=== PATIENT | female | born 1950 | race Caucasian/White ===

== ENCOUNTER → 2016-08-25 | Outpatient (CLI) | payer OTHER ==
[~2016-08-25] VITALS: Ht 152.4 cm; Wt 60.5 kg
[~2016-08-25] MED LIST: AMBEREN; ASPIRIN325; CALTRATE-600 W1 EACH PO; COLACE100 MG PO; DOLOPHINE HCL10 MG; EEMT DS 1.25-21 EACH PO; ESTRACE2 MG PO; EXCEDRIN CAPLE1 EACH PO; LASIX 20 MG TAB20 MG PO; LEVOTHYROXIN0.075 MG PO; METHADONE HCL 110 M1 PO; METHADOSE10 MG PO; MULTIVITAMINS; PREVACID 30MG C30 M1 PO; SYNTHROID50 MCG PO; TOPROL XL100 MG PO; XANAX 0.5 MG0.5 M1 PO
--- NOTE | ~2016-08-25 | HPC ---
[facility] [address] [place] [address] PAIN MANAGEMENT CONSULTATION Name: MATEUS CHRISTINE Room #: REG Aracely Toscano#: [id number] Admission: 08/25/16 Attend Phys: Jose Carlos Blair MD Discharge: Date of : 48 Report #: [id number] THIS REPORT FOR: //name// CC: Luan Blair DATE OF SERVICE: 08/25/2016 Followup visit for trigeminal neuralgia. The patient is in the pain clinic today for a 20-minute consultation regarding her long time use of methadone for trigeminal neuralgia. Her peak dose was 90 mg. We had a long discussion today about the CDC guidelines, morphine milligram equivalency recommendations and chronic use. I told her that just in the last week we had been receiving some letters from insurance companies who were suggesting that they would no longer pay for medications above 90 morphine milligram equivalencies. We foresee this coming. Likely, the insurance company will not interfere with the doctor-patient relationship, only to the extent that they will not pay for certain medications outside of the guidelines. I have no way of predicting what the future will bring. At any rate, I will first try and taper to the lowest most effective dose. We will continue when she is open to that. We will place her on her methadone dose down again by 10 mg per day. She originally was at 90 and she tolerated it. I dropped to hopeful that she will also continue to do well dropping her dose to 70 mg a day. For years, she has told me that her pain score is zero. When she comes in the clinic today for the first time, she notes that her pain is a 2-4, right side of her face, although she tells me she believes it may be the cold wind and the temperature . She has no other significant withdrawal symptoms with reduction in the methadone over the last 3-month interval. There have been no other significant changes in her health. She is doing well. She follows with Dr. King Fisher for the rest of her health issues. 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 PHYSICAL EXAMINATION: VITAL SIGNS: Blood pressure 136/60, heart rate is 48. BMI is 26.1. NEUROLOGIC: She moves easily from sitting to standing position. She ambulates with mild antalgic features, owing to some arthritis also in her hip. She has tenderness there. Cervical range of motion is normal, with mild crepitus. She complains of slight pain with neck extension. There is no allodynia to the right side of the face, where she has typically suffered from her atypical facial pain/trigeminal neuralgia. [address] [address] PAIN MANAGEMENT CONSULTATION Name: MATEUS CHRISTINE Ezekiel Room #: REG CL Dorcas#: [id number] Admission: 08/25/16 Attend Phys: Jose Carlos Blair MD Discharge: Date of : 48 Report #: [id number] IMPRESSION: 1. Chronic facial pain, atypical neuralgia/trigeminal neuralgia. 2. Management of high-risk medication. SUMMARY: Medications were renewed under terms of our opioid agreement, with strict instructions in safeguarding. She was given methadone 210 tablets per month. She will be dosing 3 in the morning, 2 in the afternoon and 2 in the evening for chronic pain. We will see how she does with this reduction in the 3-month interval. <ELECTRONICALLY SIGNED> By: Jose Carlos Blair MD 08/26/16 1329 [id number] Jose Carlos Blair MD /nt
[2016-08-25 08:17] VITALS: BP 136/60
== END | disposition home or self-care (01) ==
LOC: PAIN 07:01
DX: M79.1 Myalgia (principal); G50.0 Trigeminal neuralgia; G89.29 Other chronic pain; Z87.891 Personal history of nicotine dependence

== ENCOUNTER → 2016-11-21 | Outpatient (CLI) | payer OTHER ==
[~2016-11-21] VITALS: Ht 152.4 cm; Wt 59.8 kg
--- NOTE | ~2016-11-21 | HPC ---
[facility] [place] [place] [address] PAIN MANAGEMENT CONSULTATION Name: MATEUS CHRISTINE Room #: REG [facility] Yudy.#: [id number] Admission: 11/21/16 Attend Phys: Jose Carlos Blair MD Discharge: Date of : 48 Report #: [id number] THIS REPORT FOR: //name// CC: Luan Blair DATE OF SERVICE: 11/21/2016 Followup visit for trigeminal neuralgia. The patient returns to pain clinic today in followup 3 months ago. At that time, we began tapering further methadone. She had been on 90 mg tapered down to 80, then 70. Today, we will make further reduction down to 60 mg. We have been doing this at 3-month intervals and she has done well without signs of withdrawal. We have also been able to keep under control her migraine and trigeminal headaches, so all is going well to this point. She is noticing, however, that she is having a bit more of a fasciculation in her right periorbital region. I have not seen this before and she showed me today how this occurs. She says that the cold wind is bothering her today. Typically, she scores her pain as 0. Today, it is 2-4. We will watch and make sure that we can continue to taper her medication further without losing control of her trigeminal neuralgia. She reports that pain has been so very well controlled that she has been able to function almost normally with the use of methadone. Her opioid risk tool is 0. Likelihood of addiction is low given our assessment. PHYSICAL EXAMINATION: She is pleasant, alert and oriented, without signs of overmedication depression or anxiety. Small fasciculation is noted along the right periorbital region. There is minor discomfort with light touch allodynia noted along the right side of the face. Blood pressure is 112/67, heart rate 46, respirations 16. IMPRESSION: 1. Trigeminal neuralgia. 2. Management of high risk medication methadone. Followup visit is planned in 3 months. By: [id number] Jose Carlos lBair MD /nt
[2016-11-21 09:41] VITALS: BP 112/67
== END ==
LOC: PAIN 06:40
DX: G50.0 Trigeminal neuralgia (principal); G43.909 Migraine, unspecified, not intractable, without status migrainosus; I10 Essential (primary) hypertension; Z87.891 Personal history of nicotine dependence

== ENCOUNTER → 2017-02-06 | Outpatient (CLI) | payer OTHER ==
[~2017-02-06] VITALS: Ht 154.9 cm; Wt 61.7 kg
--- NOTE | ~2017-02-06 | HPC ---
[facility] [place] [address] PAIN MANAGEMENT CONSULTATION Name: MATEUS CHRISTINE Room #: REG [facility] Yudy.#: [id number] Admission: 02/06/17 Attend Phys: Jose Carlos Blair MD Discharge: Date of : 48 Report #: [id number] THIS REPORT FOR: //name// CC: Luan Blair DATE OF SERVICE: 02/06/2017 DATE OF REGISTRATION: 02/06/2017 Followup visit for trigeminal neuralgia. The patient returns to pain clinic today and is doing okay. I have reduced her methadone from 100 mg a day down to 60 mg a day. She says that she now has pain of about a 4/10. She previously used to report no pain whatsoever. She has no significant side effects from her medication. I think she is disappointed. We have dropped her dose, but we have been trying to come to the lowest effective dose. I had planned that we might try and reduce her further if she was stable, but today I have elected to keep her at 60 mg a day. She still has pain on the right side of her face, which is sharp, pounding pressure sensation, particularly worsened by cold and she also can be aggravated by bright light. No other health issues have gone on since her last visit. She has seen no other physicians, no hospitalizations or ER visits. PHYSICAL EXAMINATION: Blood pressure 118/56, heart rate 44. BMI is 25. She is pleasant, alert and oriented without any signs of depression, anxiety or overmedication. IMPRESSION: 1. Trigeminal neuralgia. 2. Management of high risk medication methadone. I renewed her methadone at 60 mg per day under terms of our opioid agreement. We discussed the importance of safeguarding medication. She understands the opioid crisis well and she also understands it by current calculations she is outside of the CDC guideline. I will make the judgment that we should continue that today, but we will continue to monitor closely. She will require urine drug screens periodically. Followup visit is planned in 3 months. By: [id number] Jose Carlos Blair MD /nt
[2017-02-06 14:24] VITALS: BP 118/56
== END | disposition home or self-care (01) ==
LOC: PAIN 06:55
DX: G50.0 Trigeminal neuralgia (principal); G89.29 Other chronic pain; F11.20 Opioid dependence, uncomplicated; Z87.891 Personal history of nicotine dependence; Z79.82 Long term (current) use of aspirin; Z88.8 Allergy status to other drugs, medicaments and biological substances

== ENCOUNTER → 2017-05-01 | Outpatient (CLI) | payer OTHER ==
[~2017-05-01] VITALS: Ht 152.4 cm; Wt 61.3 kg
--- NOTE | ~2017-05-01 | HPC ---
[facility] [address] [address] PAIN MANAGEMENT CONSULTATION Name: MATEUS CHRISTINE Room #: REG [facility] Dorcas#: [id number] Admission: 05/01/17 Attend Phys: Jose Carlos Blair MD Discharge: Date of : 48 Report #: [id number] THIS REPORT FOR: //name// CC: Luan Blair DATE OF SERVICE: 05/01/2017 DATE OF REGISTRATION: 05/01/2017 Followup visit for trigeminal neuralgia. 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 This is extremely difficult condition, has been well managed with her methadone. She has seen at 3-month intervals. We have reduced her dose from 100 mg a day down to 60. It is taking her a little bit, but she has adjusted to this new dose and although her pain scores used to be 0 and are now 3, she says that she has adjusted and does not want to go up on her medication at this time. We had a long talk today about the opioid crisis in the [place], the difference between an addiction and dependence. She is very grateful for the medication that has allowed her to get her life back. She was miserable when we first saw her. She has no other medical issues currently ongoing other than some new onset of neck pain with radiation into the left shoulder. She has had 2 previous anterior cervical diskectomy and fusions. On physical examination, she is pleasant, alert and oriented, without signs of depression, anxiety or overmedication. Vital signs are blood pressure 116/64, heart rate 46, respirations 16, BMI is 26.4. She walks with normal gait without an antalgic features. Examination of the face reveals no allodynia. Examination of the neck reveals some mild pain located to the left of the midline roughly at C6-C7 with radiation to the suprascapular region. There is no radiation beyond at this time. 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 Sensation is intact. Deep tendon reflexes are 1+ biceps, triceps and brachioradialis. I checked reflexes in the lower extremities for evidence of hyperreflexia and there is none. IMPRESSION: 1. 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 2. Management of high risk medication of methadone. This medication has been very effective in helping her with her neuropathic pain and she is taking according to contract. She will follow our opioid agreement carefully and [address] [address] PAIN MANAGEMENT CONSULTATION Name: MATEUS CHRISTINE Room #: REG [facility] [id number] Admission: 05/01/17 Attend Phys: Jose Carlos Blair MD Discharge: Date of : 48 Report #: [id number] safeguard all medications. 3. New onset of cervicalgia with radiation. She has a history of anterior cervical diskectomy and fusion performed in the right. For now, we will watch this symptom carefully. If they worsen, she will be a candidate for cervical epidural injection. DIAGNOSTIC TESTING: Would include possible MRI. Medications were renewed and I will see her back in 3 months. By: [id number] Jose Carlos Blair MD /nt
[2017-05-01 10:08] VITALS: BP 116/64
== END | disposition home or self-care (01) ==
LOC: PAIN 07:21
DX: G50.0 Trigeminal neuralgia (principal); Z87.891 Personal history of nicotine dependence

== ENCOUNTER → 2017-07-24 | Outpatient (CLI) | payer OTHER ==
[~2017-07-24] VITALS: Ht 152.4 cm; Wt 59.4 kg
[~2017-07-24] MED LIST changes: +PRILOSEC 20 MG20 MG PO
--- NOTE | ~2017-07-24 | HPC ---
[facility] [place] [address] PAIN MANAGEMENT CONSULTATION Name: MATEUS CHRISTINE Room #: REG Aracely Dorcas#: [id number] Admission: 07/24/17 Attend Phys: Jose Carlos Blair MD Discharge: Date of : 48 Report #: [id number] THIS REPORT FOR: //name// CC: Luan Blair DATE OF SERVICE: 07/24/2017 DATE OF REGISTRATION: 07/24/2017 Follow up visit for management of trigeminal neuralgia. The patient presents back to the pain clinic today with the pain score of 4/10. Her trigeminal neuralgia has been acting up a bit since we tapered her down off of her narcotic a bit and she has also been under a lot of stress as her was hospitalized recently. She has anesthesia dolorosa which is quiet down substantially with the methadone suppression over the number of years. She has been on an opioid agreement, which we reviewed today. We talked again about the CDC guidelines. We talked about her current use. If we use methadone calculation at 4 mg/mL, her current daily dose is 60 mg of methadone per day is equal to 240 MME. As I have said often, my clinical impression is the 4:1 ratio does not seem quite right for patient's long established on methadone. The longer they are on it, the less it seems to affect them in any sort of negative way. She has no cognitive issues whatsoever. Denies any bowel or bladder dysfunction. I had a chance to talk today with her daughter. Her daughter is living locally and is the first time I have met her. Daughter has 2 small children, ages 6 and 8. She does not believe that the medications are adversely affecting her parents. PHYSICAL EXAMINATION: GENERAL: The patient looks good, well groomed, well dressed. VITAL SIGNS: Blood pressure 137/62, heart rate is 50, respirations 16, BMI is 25.6. MUSCULOSKELETAL: She has very minimal allodynia on the right side of her face. She does complain of some radicular pain into the neck, shoulder and down into the left arm extending into the C6-C7 distribution with mild numbness and tingling there. IMPRESSION: 1. Chronic trigeminal neuralgia and anesthesia dolorosa. 2. Management of methadone with good control of current pain, currently on opioid agreement. [address] [address] PAIN MANAGEMENT CONSULTATION Name: MATEUS CHRISTINE Ezekiel Room #: REG CHASE Toscano#: [id number] Admission: 07/24/17 Attend Phys: Jose Carlos Blair MD Discharge: Date of : 48 Report #: [id number] 3. Cervicalgia with radiculopathy on the left. PLAN: Medications renewed. Plan to follow up in 3 months. She may yet be a candidate for cervical epidural injection if her radicular symptoms worsen. By: [id number] Jose Carlos Blair MD /ishan
[2017-07-24 09:21] VITALS: BP 137/62
== END ==
LOC: PAIN 07:18
DX: M54.12 Radiculopathy, cervical region (principal); G50.0 Trigeminal neuralgia; F11.90 Opioid use, unspecified, uncomplicated

== ENCOUNTER → 2017-10-12 | Outpatient (CLI) | payer OTHER ==
[~2017-10-12] VITALS: Ht 152.4 cm; Wt 59.9 kg
--- NOTE | ~2017-10-12 | HPC ---
[facility] [address] [place] [address] PAIN MANAGEMENT CONSULTATION Name: MATEUS CHRISTINE Room #: REG CHASE Dorcas#: [id number] Admission: 10/12/17 Attend Phys: Jose Carlos Blair MD Discharge: Date of : 48 Report #: [id number] THIS REPORT FOR: //name// CC: Luan Blair DATE OF SERVICE: 10/12/2017 Followup visit for trigeminal neuralgia. The patient returns to pain clinic today for renewal of her methadone. We had a lengthy discussion today about methadone and the treatment of neuralgias. As I have noted before, she is one of many patients perhaps dozens the patients in our practice who responded very favorably to methadone for the treatment of neuropathic pain. This is no coincidence. Methadone clearly and clinical practice such as ours have shown benefits for neuropathic pain. It has been particularly useful for facial neuralgias, phantom limb pain and other unusual conditions. It is very well tolerated with a few side effects. She notes no significant cognitive side effects. Bowel and bladder are well controlled. Her current dose is 60 mg a day, which is on the upper edge of what I typically treat patients with. She was at one time on 100 mg per day. We have been tapering her slowly and she is agreeable to try and taper to the lowest effective dose and we are going to go down by 10 mg of methadone per day to 50. Using current calculations, this is still rather high in the CDC guideline. With 4 mg of morphine as an equivalents for 1 mg of methadone, the calculation is 200 MME. We will continue to try and taper it. My clinical impression is that this number is a bit too high. PQRS review shows that she has some osteoarthritis, mostly spondylosis of the neck. Some other degenerative conditions are noted as well in larger joints, but nothing that is under treatment. She stays fit, her BMI is 25.8. She does not smoke nor drink alcohol. Her vital signs are stable with a blood pressure 134/78, heart rate is 53, O2 sats 100. Pain intensity today with medication is 0-3. This allows for a functional assessment tool score that is very low 5/70 suggesting that her pain interferes very little with her day to day activities under current treatment. Risks assessment tool also shows that she is at low risk for addiction. She is on an opioid agreement, which was reviewed and she re-signed it today after reading it once again. She initially signed her agreement at this initiation of therapy in our clinic in 2007, so it has been about 10 years. It is reasonable for her to look at it once again. She understands the importance of safeguarding medications and we have had multiple talks about the opioid crisis. 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 [address] [address] PAIN MANAGEMENT CONSULTATION Name: MATEUS CHRISTINE Ezekiel Room #: REG CHASE Toscano#: [id number] Admission: 10/12/17 Attend Phys: Jose Carlos Blair MD Discharge: Date of : 48 Report #: [id number] IMPRESSION: 1. Chronic trigeminal neuralgia and anesthesia dolorosa, well managed with methadone. 2. Cervicalgia with radiculopathy, which is quiet at this time. PLAN: Follow up in the pain clinic in 3 months for medication. Dated prescriptions were released today. <ELECTRONICALLY SIGNED> By: Jose Carlos Blair MD 10/18/17 1640 [id number] [id number] Jose Carlos Blair MD /nt
[2017-10-12 13:03] VITALS: BP 134/78
== END ==
LOC: PAIN 07:08
DX: G50.0 Trigeminal neuralgia (principal)

== ENCOUNTER → 2018-03-19 | Outpatient (CLI) | payer OTHER ==
[~2018-03-19] VITALS: Ht 154.9 cm; Wt 62.6 kg
--- NOTE | ~2018-03-19 | HPC ---
[facility] [place] [address] PAIN MANAGEMENT CONSULTATION Name: MATEUS CHRISTINE Room #: REG [facility] Dorcas#: [id number] Admission: 03/19/18 Attend Phys: Jose Carlos Blair MD Discharge: Date of : 48 Report #: [id number] THIS REPORT FOR: //name// CC: Luan Blair DATE OF SERVICE: 03/19/2018 The patient returns to pain clinic today for followup. She receives methadone for facial pain and trigeminal neuralgia. She has done well at a dose of 16 mg daily. I upset her today. It was unintended. I went into the [place] prescription drug monitoring program site and it appeared as though she had received medication from other physicians. She vehemently denied this and when I went back on the site I could no longer identify prescriptions. I did write down the prescriptions and who they had been prescribed by and will pursue this further. It seems quite unlikely given her denial that the information was correct, but we will do our footwork. After upsetting her by letting her know that I had found this perhaps spurious information she was unsettled through the rest of the visit. She reported that the medication was critical to her. It provided dramatic and improvement in her pain and allowed her to be functional and able to do things that she was unable to do until she was able to obtain a reasonable dose of methadone. She denies side effects of any sort and safeguards her medication carefully including the appropriate use of prescriptions as provided by myself. She scores her pain with medications a /. She has no further allodynia or sensations from light touch or wind as she had when we lowered her dose at one time. PHYSICAL EXAMINATION: Other than her unhappiness at being told that she had been using medication, she appears to be stable and fine, pleasant, alert and oriented, without signs of overmedication. Blood pressure 130/63, heart rate 47, respirations 14, BMI 26.1. She has no allodynia whatsoever of the face today. IMPRESSION: 1. Trigeminal neuralgia with anesthesia dolorosa. 2. Management of high risk medication methadone. [facility] [address] [place] [address] PAIN MANAGEMENT CONSULTATION Name: MATEUS CHRISTINE Ezekiel Room #: REG [facility].#: [id number] Admission: 03/19/18 Attend Phys: Jose Carlos Blair MD Discharge: Date of : 48 Report #: [id number] RECOMMENDATIONS: We will pursue the issue of the spurious drug reporting and I will discuss further with Dr. Fisher if he has any questions. By: [id number] Jose Carlos Blair MD /nt
[2018-03-19 14:29] VITALS: BP 130/63
== END ==
LOC: PAIN 06:27
DX: G50.0 Trigeminal neuralgia (principal); Z79.899 Other long term (current) drug therapy

== ENCOUNTER → 2018-06-14 | Outpatient (CLI) | payer OTHER ==
[~2018-06-14] VITALS: Ht 154.9 cm; Wt 61.5 kg
--- NOTE | ~2018-06-14 | HPC ---
[facility] [address] [place] [address] PAIN MANAGEMENT CONSULTATION Name: MALLORY CHRISTINE Room #: REG [facility] Dorcas#: [id number] Admission: 06/14/18 Attend Phys: Aubrie Sheikh Discharge: Date of : 48 Report #: [id number] THIS REPORT FOR: //name// CC: Aubrie Fisher DATE OF SERVICE: 06/14/2018 CHIEF COMPLAINT: The patient returns today for followup medications for her facial pain and trigeminal neuralgia. HISTORY OF PRESENT ILLNESS: The patient returns today for followup for her medication management. Normally seen by Dr. Jose Carlos Blair, seen by myself today for her refill of her medication of methadone, which she takes 10 mg 2 tablets 3 times a day for her trigeminal neuralgia and some lower back pain. States that the medication is very helpful in easing her sharp, pounding, electrical pressure pain that she has and rates it 2/10 on a scale of 1-10 today. She does tell me that she was very upset at last visit with Dr. Blair regarding our practice of checking the state reporting PDMPs and found that she had no opioids and was not filling those. I did tell her that we did go in using just her name Yuki which she does not use here in our office, she uses Mallory and we did find all of her medications to be appropriate and only filling by Dr. Jose Carlos Blair with no apparent deviations. I did apologize to her and told her we should have called her, but Dr. Blair did speak to her about this and the patient understands that. The patient does tell me that she does have some constipation, but takes apples, oranges and cranberries in combination in type smoothie that is very effective in controlling her constipation issues. She denies daytime sleepiness and again states the medication is very helpful. She has tried to wean down some, but found that her pain control has been ineffective at a lower dose than what she currently is at. I talked to her about the MME guidelines per the CDC which the patient was aware of. Also discussed changes in our practice based on 0-50, 50-90 and over 90 and therefore we will be seeing her on an every 2-month basis based on where her MME falls with her methadone conversion. The patient was agreeable with this. Did tell me that it is sometimes costly to see us, but she understands the need to closely monitor everyone's narcotic uses. ALLERGY: FLAGYL. MEDICATIONS: The patient's list of medication is methadone 10 mg 2 tablets 3 times a day, omeprazole, Lasix, Excedrin caplets, Synthroid, multivitamin, calcium, Estrace, Toprol XL. RS: [address] [address] PAIN MANAGEMENT CONSULTATION Name: MALLORY CHRISTINE Ezekiel Room #: REG [facility]#: [id number] Admission: 06/14/18 Attend Phys: Aubrie Sheikh Discharge: Date of : 48 Report #: [id number] 1. History of osteoarthritis in her neck. Denies rheumatoid arthritis. 2. Height 5 feet 1 inch, weight today 135.6, BMI is 25.6. 3. Blood pressure 129/64, pulse is 44, respirations 16, oxygen sat is 96. 4. Pain intensity today is 2/10. 5. Fall risk: Denies any dizziness. Does not need help walking or standing and has not fallen in the last 3 months. 6. Denies blood thinners. 7. Does have a history of hypertension. 8. She has opioid therapy greater than 6 weeks and therefore opioid sign contract is on the chart. 9. Risk assessment tool is low and her functional assessment is . 10. The patient denies recreational drug use, is a former smoker and not using at this time and does not use alcohol. We did check her [place] PDMP and found that it was appropriate with only Dr. Blair filling her medications with no aberrant behavior. PHYSICAL EXAMINATION: GENERAL: The patient is a very pleasant 67-year-old female, alert, oriented, and appears her stated age. HEENT: Normocephalic, atraumatic. Extraocular muscles are intact. Mucous membranes are moist. No allodynia whatsoever on her face, does have tenderness to her face at times. No facial weakness is noted. MUSCULOSKELETAL: The patient able to ambulate without difficulty, raise from standing to sitting without difficulty. Able also to move her shoulders, neck and arm without difficulty. IMPRESSION: 1. Trigeminal neuralgia with anesthesia dolorosa. 2. Low back pain with no radiculopathy. 3. Management of high risk medication methadone. We reviewed the fact that opiate medications are being used to provide analgesia adequate to support activities of daily living, not attempting to achieve a specific pain score on the 0-10 Visual Analog Scale. The current opiate medications are providing sufficient analgesia to allow the patient to participate in activities of daily living. The patient is not exhibiting any aberrant behavior suggestive of drug diversion. The patient is not having any adverse reactions to medications. The patient is not suffering from daytime somnolence or mental acuity changes. The patient is managing opiate-induced constipation with appropriate zldf-wog-xsnffxy agents and dietary considerations. The patient was counseled on concern for caution with operating a motor vehicle while using opiate medications. A physical exam was performed and the patient's functional status was evaluated. All patients with back pain were advised against the bed rest greater than 4 [facility] [address] [place] [address] PAIN MANAGEMENT CONSULTATION Name: MALLORY CHRISTINE Room #: REG [facility].#: [id number] Admission: 06/14/18 Attend Phys: Aubrie Sheikh Discharge: Date of : 48 Report #: [id number] days and were advised to return to normal activities. Pain score assessment was noted and the treatment plan was reviewed with the patient. All current medications, both prescribed and OTC were reviewed and reconciled on the electronic medical record. Tobacco screening was accomplished and smoking cessation was advised when indicated. BMI was noted and diet/exercise modification was recommended for all patients following outside normal parameters. I reviewed with the patient today their responsibilities to safeguard prescription medications, reviewed their responsibility to utilize medications only as prescribed by the physician. They are to seek and receive pain medications only from 1 physician group ([facility]). They are to use 1 pharmacy and keep the clinic informed if they change pharmacies. Their responsibilities include making followup visits in a timely fashion and to avoid abrupt discontinuation of medication usage. Their responsibilities further include bringing their medications (bottles from the pharmacy with residual pills) to the visit for possible confirmation of pill counts and the patient understands it is their responsibility to submit to random drug screens to ensure both that the medications prescribed are present, and that no other controlled substances are present. All prescriptions provided today were generated electronically. PLAN: As discussed above, I have refilled in collaboration with Dr. Jose Carlos Blair, her methadone prescription 20 mg 1 tablet 3 times a day for today and again in 4 weeks for a total of 180 pills. The patient is agreeable with this and we will see her therefore in 2 months' timeframe. She may see either Dr. Jose Carlos Blair or myself at the next visit and then at the following visit she would see Dr. Blair. The patient is seen in collaboration with Dr. Jose Carlos Blair. <ELECTRONICALLY SIGNED> By: Aubrie Sheikh 06/15/18 1216 [id number] 0128 Aubrie Sheikh /nt
[2018-06-14 09:34] VITALS: BP 129/64
== END ==
LOC: PAIN 06:51
DX: G50.0 Trigeminal neuralgia (principal); M54.5 Low back pain; Z79.899 Other long term (current) drug therapy

== ENCOUNTER → 2018-08-09 | Outpatient (CLI) | payer OTHER ==
[~2018-08-09] VITALS: Ht 154.9 cm; Wt 61.0 kg
--- NOTE | ~2018-08-09 | HPC ---
[facility] [address] [place] [address] PAIN MANAGEMENT CONSULTATION Name: MATEUS CHRISTINE Ezekiel Room #: REG [facility] Toscano#: [id number] Admission: 08/09/18 Attend Phys: Aubrie Sheikh Discharge: Date of : 48 Report #: [id number] THIS REPORT FOR: //name// CC: Aubrie Sheikh [facility] DATE OF SERVICE: 08/09/2018 CHIEF COMPLAINT: Trigeminal neuralgia and facial pain. HISTORY OF PRESENT ILLNESS: The patient returns today for a followup visit for her medication management. She has been stable on her methadone for quite some time for her trigeminal neuralgia that affects her right side of her face. She also has ongoing low back pain. She tells me that her pain score today is 4, which is a little higher; usually she says she has no pain, but it is windy outside today and that has caused her face to hurt. She tells me also bright lights and cold and loud noise makes her pain worse. Medications help as well as sleep. She has a sharp pounding pressure feeling in her jaw. She denies any constipation or daytime sleepiness. She continues to be as active as she is able, currently caring for her who had fallen and fractured some vertebrae in his neck and torn his right rotator cuff, so she has been quite busy taking care of him as well as getting ready for an upcoming wedding in their family. The patient would like a refill of her current medications. ALLERGIES: FLAGYL. CURRENT MEDICATIONS: Methadone 10 mg, she takes 20, 20, 20 for a total of 60 mg a day; Prilosec 20 mg daily, Lasix 20 mg daily, Excedrin capsules as needed, Synthroid 75 mcg daily, multivitamin daily, calcium with D daily, Estrace daily, metoprolol 100 mg daily. PQRS: 1. She has a history of osteoarthritis in her neck. She denies rheumatoid arthritis. 2. She is 5 feet 1 inches, 134 pounds, 25 is her BMI. 3. Vital signs: Blood pressure 145/84, pulse is 47, respirations 16, oxygen sat is 96. Pain score is 4/10. 4. Fall risk. She denies dizziness. Does not need help walking or standing. Has not fallen in the last 3 months. 5. The patient is not on a blood thinner and does take antihypertensive medicines. 6. Her risk assessment tool is low and her functional assessment 5/70. 7. She is on opioid therapy greater than 6 weeks, therefore an opioid signed contract is on the chart. 8. The patient denies recreational drug use. She is a former smoker [place] [address] PAIN MANAGEMENT CONSULTATION Name: MATEUS CHRISTINE Ezekiel Room #: REG [facility]#: [id number] Admission: 08/09/18 Attend Phys: Aubrie Sheikh Discharge: Date of : 48 Report #: [id number] We did check her prescription monitoring system. She is filling appropriately for her medications and she tells me that she safeguards her medications. PHYSICAL EXAMINATION: GENERAL: This is a very pleasant, well-developed, well-nourished 67-year-old female who appears her stated age. She is alert and orientated and her affect is appropriate. HEENT: Normocephalic, atraumatic. Extraocular eye muscles are intact. Mucous membranes are moist. No allodynia on her face, does have some tenderness on her right jawline. MUSCULOSKELETAL: The patient was able to ambulate without difficulty, raise from sitting to standing without difficulty. IMPRESSION: 1. Trigeminal neuralgia with anesthesia dolorosa. 2. Low back pain with no radiculopathy. 3. Management of high risk medications of methadone on an opioid written agreement. We reviewed the fact that opiate medications are being used to provide analgesia adequate to support activities of daily living, not attempting to achieve a specific pain score on the 0-10 Visual Analog Scale. The current opiate medications are providing sufficient analgesia to allow the patient to participate in activities of daily living. The patient is not exhibiting any aberrant behavior suggestive of drug diversion. The patient is not having any adverse reactions to medications. The patient is not suffering from daytime somnolence or mental acuity changes. The patient is managing opiate-induced constipation with appropriate myki-zis-arqknqq agents and dietary considerations. The patient was counseled on concern for caution with operating a motor vehicle while using opiate medications. A physical exam was performed and the patient's functional status was evaluated. All patients with back pain were advised against the bed rest greater than 4 days and were advised to return to normal activities. Pain score assessment was noted and the treatment plan was reviewed with the patient. All current medications, both prescribed and OTC were reviewed and reconciled on the electronic medical record. Tobacco screening was accomplished and smoking cessation was advised when indicated. BMI was noted and diet/exercise modification was recommended for all patients following outside normal parameters. I reviewed with the patient today their responsibilities to safeguard prescription medications, reviewed their responsibility to utilize medications only as prescribed by the physician. They are to seek and receive pain medications only from 1 physician group ([facility]). They are to use [address] [address] PAIN MANAGEMENT CONSULTATION Name: MATEUS CHRISTINE Room #: REG [facility]#: [id number] Admission: 08/09/18 Attend Phys: Aubrie Sheikh Discharge: Date of : 48 Report #: [id number] pharmacy and keep the clinic informed if they change pharmacies. Their responsibilities include making followup visits in a timely fashion and to avoid abrupt discontinuation of medication usage. Their responsibilities further include bringing their medications (bottles from the pharmacy with residual pills) to the visit for possible confirmation of pill counts and the patient understands it is their responsibility to submit to random drug screens to ensure both that the medications prescribed are present, and that no other controlled substances are present. All prescriptions provided today were generated electronically. PLAN: The patient returns to the pain clinic today and discussed treatment options. The patient tells me that her methadone is very effective in controlling her trigeminal neuralgia. She tells me that her pain is normally 0/10, today slightly higher, requesting refills. We did give her methadone 10 mg, #180 for today and 4-week. The patient will be seen again in 2 months' time frame for medication refills. The patient verbalizes the understanding of this. The patient is seen today under collaboration with Dr. Jose Carlos Blair. <ELECTRONICALLY SIGNED> By: Aubrie hSeikh 08/10/18 0734 1432 1455 Aubrie Sheikh /nt
[2018-08-09 13:31] VITALS: BP 145/84
== END ==
LOC: PAIN 08:46
DX: M54.5 Low back pain (principal); G50.0 Trigeminal neuralgia; Z79.891 Long term (current) use of opiate analgesic; Z79.899 Other long term (current) drug therapy

== ENCOUNTER → 2018-09-28 | Outpatient (CLI) | payer OTHER ==
[~2018-09-28] VITALS: Ht 154.9 cm; Wt 62.1 kg
[2018-09-28 09:44] VITALS: BP 134/69
--- NOTE | 2018-09-28 09:59 | NUR ---
Pain Clinic Assessment: 1. History of Osteoarthritis: NECK History of Rheumatoid Arthritis: Not Applicable 2. Height: 5 ft. 1 in. 154.9 cm. Weight: 136.8 lb. oz. 62.052 kg. Patient's BMI: 25.9 3. Vital Signs: BP: 134/69 Pulse: 45 Resp: 16 Temp: 02 Sat: 100 ECG Mon: 4. Pain Intensity: 2 inside 8-10 outside 5. Fall Risk: Dizziness: N Needs help standing or walking: N Fallen in the last 3 months: N Fall risk comments: 6. Patient on Blood Thinner: None 7. History of Hypertension: Y 8. Opioid Therapy greater than 6 weeks: Y Opiate Contract Signed: 10/12/17 9. Risk Assessment Tool Provided: low risk-0 10. Functional Assessment Tool: 11. Recreational Drug Use: Never Drug Type: Tobacco Use: Former Smoker Tobacco Type: Amount or Packs/day: How Many Years: Alcohol Use: No Frequency: Quant:
--- NOTE | 2018-10-01 07:24 | HPC ---
[facility] [address] [place] [address] PAIN MANAGEMENT CONSULTATION Name: MATEUS CHRISTINE Ezekiel [facility] [id number] Admission: 09/28/18 Attend Phys: Aubrie Sheikh Discharge: Date of : 48 Report #: [id number] THIS REPORT FOR: //name// CC: [facility] Sheikh [facility] DATE OF SERVICE: 09/28/2018 CHIEF COMPLAINT: Trigeminal neuralgia. HISTORY OF PRESENT ILLNESS: The patient returns to the pain clinic today for refill of her medication for her right-sided face pain due to trigeminal neuralgia. She tells me that her pain score of 2 today when she is inside. It is very cold outside today and that raises her pain score to 8 or 10. Then, it subsides when she comes back inside. She tells me that her medications are very helpful. She is also complaining of slight low back pain today. She denies any constipation. She tells me that she takes a combination of cranberry, apple and oranges couple of times a day and helps with her constipation. She has no daytime sleepiness. She would just like a refill of her medication. She tells me that she has been doing quite well. CURRENT ALLERGIES: TO FLAGYL. CURRENT LIST OF MEDICATIONS: Methadone 10 mg tablets 2 in the morning, 2 midday, 2 later in the day; omeprazole 20 mg daily; Lasix 20 mg daily; Excedrin capsules as needed; Synthroid 2.25 mg daily; multivitamin daily; calcium daily; Estrace 2 mg daily and Toprol-XL 100 mg daily. PQRS: 1. She has a history of osteoarthritis in her neck. She denies any rheumatoid arthritis. 2. Height is 5 feet 1 inch, weight is 136 pounds, BMI is 25.9. Vital signs: Blood pressure 134/59, pulse is 45, respirations 16, oxygen sat is 100. 3. Pain score is 2/10 inside 8-10 when she is outside. 4. Fall risk: She denies dizziness, does not need help walking, not fallen in the last 3 months. 5. Denies blood thinners, does take medicines for hypertension. 6. Opioid therapy is greater than 6 weeks; therefore, an opioid signed contract is on the chart. 7. Her risk assessment tool is low. Her functional assessment is 5/7. 8. Recreational drug use: She denies. She is not a smoker any longer and she does not drink alcohol. We did check the prescription monitoring system, the patient is filling appropriately for her medications and is due for them and there is a drug screen on the chart within the past year. PHYSICAL EXAMINATION: [facility] [address] [place] [address] PAIN MANAGEMENT CONSULTATION Name: MATEUS CHRISTINE Ezekiel Room #: REG [facility]#: [id number] Admission: 09/28/18 Attend Phys: Aubrie Sheikh Discharge: Date of : 48 Report #: [id number] GENERAL: This is a very pleasant, well-developed, well-nourished, 67-year-old female who appears her stated age. She is alert and orientated and she is a good historian. HEENT: Normocephalic, atraumatic. Extraocular eye muscles are intact. Mucous membranes are moist. EXTREMITIES: No allodynia on her face, but she does have tenderness in her jaw on the right side. MUSCULOSKELETAL: The patient is able to ambulate without difficulty. Muscle strength in her lower extremity judged to be 5/5 in all major muscle groups. IMPRESSION: 1. Trigeminal neuralgia. 2. Low back pain with no radiculopathy. 3. Management of high risk medications of methadone on a written opioid agreement. We reviewed the fact that opiate medications are being used to provide analgesia adequate to support activities of daily living, not attempting to achieve a specific pain score on the 0-10 Visual Analog Scale. The current opiate medications are providing sufficient analgesia to allow the patient to participate in activities of daily living. The patient is not exhibiting any aberrant behavior suggestive of drug diversion. The patient is not having any adverse reactions to medications. The patient is not suffering from daytime somnolence or mental acuity changes. The patient is managing opiate-induced constipation with appropriate gqke-lej-pteablf agents and dietary considerations. The patient was counseled on concern for caution with operating a motor vehicle while using opiate medications. A physical exam was performed and the patient's functional status was evaluated. All patients with back pain were advised against the bed rest greater than 4 days and were advised to return to normal activities. Pain score assessment was noted and the treatment plan was reviewed with the patient. All current medications, both prescribed and OTC were reviewed and reconciled on the electronic medical record. Tobacco screening was accomplished and smoking cessation was advised when indicated. BMI was noted and diet/exercise modification was recommended for all patients following outside normal parameters. I reviewed with the patient today their responsibilities to safeguard prescription medications, reviewed their responsibility to utilize medications only as prescribed by the physician. They are to seek and receive pain medications only from 1 physician group ([facility]). They are to use 1 pharmacy and keep the clinic informed if they change pharmacies. Their responsibilities include making followup visits in a timely fashion and to avoid abrupt discontinuation of medication usage. Their responsibilities further include bringing their medications (bottles from the pharmacy with residual [place] [id number] PAIN MANAGEMENT CONSULTATION Name: MATEUS CHRISTINE Room #: REG [facility]#: [id number] Admission: 09/28/18 Attend Phys: Aubrie Sheikh Discharge: Date of : 48 Report #: [id number]) to the visit for possible confirmation of pill counts and the patient understands it is their responsibility to submit to random drug screens to ensure both that the medications prescribed are present, and that no other controlled substances are present. All prescriptions provided today were generated electronically. PLAN: 1. We discussed treatment options with the patient today, she tells me that she is doing well on her current pain medication regimen and would like to continue. Scripts given for methadone 10 mg, quantity is 180 for today and 4 week. Due to the patient's MME, she does come back every 2 months. The patient is agreeable with that plan of care. 2. The patient seen in collaboration today with Dr. Darren Oquendo. <ELECTRONICALLY SIGNED> By: Aubrie Sheikh 10/01/18 0724 1026 1815 Aubrie Sheikh /ishan
== END ==
LOC: PAIN 07:12
DX: G50.0 Trigeminal neuralgia (principal); M54.5 Low back pain; Z79.891 Long term (current) use of opiate analgesic; Z79.899 Other long term (current) drug therapy

== ENCOUNTER → 2018-11-19 | Outpatient (CLI) | payer OTHER ==
[~2018-11-19] VITALS: Ht 154.9 cm; Wt 63.0 kg
[2018-11-19 10:29] VITALS: BP 143/75
--- NOTE | 2018-11-19 10:44 | NUR ---
Pain Clinic Assessment: 1. History of Osteoarthritis: NECK History of Rheumatoid Arthritis: Not Applicable 2. Height: 5 ft. 1 in. 154.9 cm. Weight: 139.0 lb. oz. 63.050 kg. Patient's BMI: 26.3 3. Vital Signs: BP: 143/75 Pulse: 50 Resp: 14 Temp: 02 Sat: 97 ECG Mon: 4. Pain Intensity: 2 inside 8-10 outside 5. Fall Risk: Dizziness: N Needs help standing or walking: N Fallen in the last 3 months: N Fall risk comments: 6. Patient on Blood Thinner: None 7. History of Hypertension: Y 8. Opioid Therapy greater than 6 weeks: Y Opiate Contract Signed: 10/12/17 9. Risk Assessment Tool Provided: low risk-0 10. Functional Assessment Tool: 11. Recreational Drug Use: Never Drug Type: Tobacco Use: Former Smoker Tobacco Type: Amount or Packs/day: How Many Years: Alcohol Use: No Frequency: Quant:
--- NOTE | 2018-11-21 07:25 | HPC ---
[facility] [address] [place] [address] PAIN MANAGEMENT CONSULTATION Name: MATEUS CHRISTINE Ezekiel [facility] [id number] Admission: 11/19/18 ������������������ Attend Phys: Aubrie Sheikh Discharge: ������������������ Date of : 48 Report #: [id number] THIS REPORT FOR: //name// CC: Aubrie Hsuwendy mae DATE OF SERVICE: 11/19/2018 CHIEF COMPLAINT: Trigeminal neuralgia. HISTORY OF PRESENT ILLNESS: The patient returns to the pain clinic today for refill of her medication that she takes for her chronic ongoing trigeminal neuralgia. She finds that this medicine is very helpful relieving her pain or at least decreasing it. Today, she rates her pain at 2/10 when she is inside, but it is still cold outside and windy, therefore her pain increases to 8/10. She tells me that the cold weather and the wind blowing, bright lights, loud noises make her pain worse, but medications, sleep in a dark environment are very helpful in decreasing her pain scores. She denies any constipation or daytime sleepiness. She did recently have the stomach flu and had significant abdominal pain, but she tells me that she is feeling better now and is not having any other side effects, would like a refill of her medications today. ALLERGIES: Flagyl. MEDICATIONS: Methadone 10 mg tablets 2 tablets 3 times a day; Prilosec 20 mg daily; Lasix 20 mg daily; Excedrin capsules as needed; Synthroid 225 mcg daily; multivitamin daily; Caltrate daily; Estrace 2 mg daily and Toprol-XL 100 mg daily. PQRS: 1. She has osteoarthritis in her neck. Denies any rheumatoid arthritis. 2. Height is 5 feet 1 inch, weight is 139, BMI is 26. 3. Vital signs: Blood pressure 143/75, pulse is 50, respirations 14, oxygen sat is 97. 4. Pain score 2/10 when she is inside, 8-10 when she is outside. 5. Fall risk. Denies dizziness, does not need walking or standing. Has not fallen in the last 3 months. 6. The patient is not on any blood thinners, does take medicine for hypertension. 7. Opioid therapy is greater than 6 weeks; therefore, an opiate signed contract is on the chart. 8. Risk assessment tool is low. Functional assessment is . 9. Recreational drug use, she denies. She is a former smoker and does not drink alcohol. We did check the prescription monitoring system. The patient has filled her [facility] [address] [place] [address] PAIN MANAGEMENT CONSULTATION Name: MATEUS CHRISTINE Room #: REG [facility]#: [id number] Admission: 11/19/18 ������������������ Attend Phys: Aubrie Sheikh Discharge: ������������������ Date of : 48 Report #: [id number] medicines on 10/29/2018 and is not due to be filled today, but is due next week. The patient tells me she safeguards her medications and there is a recent drug screen on the chart. PHYSICAL EXAMINATION: GENERAL: This is a very pleasant, well-developed, well-nourished 67-year-old female who appears her stated age. She is alert and orientated. HEENT: Normocephalic, atraumatic. Extraocular eye muscles are intact. Mucous membranes are moist. EXTREMITIES: No allodynia on her face. She does complain of some tenderness at her jawline when she was walking in today due to the cold weather. MUSCULOSKELETAL: The patient is able to ambulate without difficulty. Her muscle strength in her lower and upper extremities judged to be 5/5 in all major muscle groups. ASSESSMENT: 1. Trigeminal neuralgia. 2. Low back pain with no radiculopathy. 3. Management of high risk medications on methadone under terms of written opioid agreement. We reviewed the fact that opiate medications are being used to provide analgesia adequate to support activities of daily living, not attempting to achieve a specific pain score on the 0-10 Visual Analog Scale. The current opiate medications are providing sufficient analgesia to allow the patient to participate in activities of daily living. The patient is not exhibiting any aberrant behavior suggestive of drug diversion. The patient is not having any adverse reactions to medications. The patient is not suffering from daytime somnolence or mental acuity changes. The patient is managing opiate-induced constipation with appropriate hquo-avp-twiatqv agents and dietary considerations. The patient was counseled on concern for caution with operating a motor vehicle while using opiate medications. A physical exam was performed and the patient's functional status was evaluated. All patients with back pain were advised against the bed rest greater than 4 days and were advised to return to normal activities. Pain score assessment was noted and the treatment plan was reviewed with the patient. All current medications, both prescribed and OTC were reviewed and reconciled on the electronic medical record. Tobacco screening was accomplished and smoking cessation was advised when indicated. BMI was noted and diet/exercise modification was recommended for all patients following outside normal parameters. I reviewed with the patient today their responsibilities to safeguard prescription medications, reviewed their responsibility to utilize medications only as prescribed by the physician. They are to seek and receive pain [address] [address] PAIN MANAGEMENT CONSULTATION Name: MATEUS CHRISTINE Room #: REG [facility] Dor[facility]#: [id number] Admission: 11/19/18 ������������������ Attend Phys: Aubrie Sheikh Discharge: ������������������ Date of : 48 Report #: [id number] medications only from 1 physician group ( [facility]). They are to use 1 pharmacy and keep the clinic informed if they change pharmacies. Their responsibilities include making followup visits in a timely fashion and to avoid abrupt discontinuation of medication usage. Their responsibilities further include bringing their medications (bottles from the pharmacy with residual pills) to the visit for possible confirmation of pill counts and the patient understands it is their responsibility to submit to random drug screens to ensure both that the medications prescribed are present, and that no other controlled substances are present. All prescriptions provided today were generated electronically. PLAN: We discussed treatment options with the patient today. The patient is doing quite well on her current regimen, even though her MMA is quite high. She continues to be able to function on her current medication and it does decrease her pain. She is not overmedicated and does not have any side effects from her medications, therefore, we will continue her on 2 months of her medications. This plan was discussed with Dr. Jose Carlos Blair last week who generated prescriptions due to be filled next week for this patient and again in 6 weeks. The patient is stable on these and needed no changes: The patient is seen in collaboration today with Dr. Pancho Aiken. Appointment made in 2-month time period for her. ��������������������������������������������� <ELECTRONICALLY SIGNED> ���������������������������������������� By: Aubrie Sheikh ��������������������������������������������� 11/21/18 0725 [id number] [id number] Aubrie Sheikh /ishan
== END ==
LOC: PAIN 11-15 06:57
DX: G50.0 Trigeminal neuralgia (principal); Z79.899 Other long term (current) drug therapy

== ENCOUNTER → 2019-01-17 | Outpatient (CLI) | payer OTHER ==
[~2019-01-17] VITALS: Ht 154.9 cm; Wt 63.3 kg
[2019-01-17 09:55] VITALS: BP 153/79
--- NOTE | 2019-01-17 10:06 | NUR ---
Pain Clinic Assessment: 1. History of Osteoarthritis: NECK History of Rheumatoid Arthritis: Not Applicable 2. Height: 5 ft. 1 in. 154.9 cm. Weight: 139.6 lb. oz. 63.322 kg. Patient's BMI: 26.4 3. Vital Signs: BP: 153/79 Pulse: 51 Resp: 14 Temp: 02 Sat: 100 ECG Mon: 4. Pain Intensity: 6 5. Fall Risk: Dizziness: N Needs help standing or walking: N Fallen in the last 3 months: N Fall risk comments: 6. Patient on Blood Thinner: None 7. History of Hypertension: Y 8. Opioid Therapy greater than 6 weeks: Y Opiate Contract Signed: 10/12/17 9. Risk Assessment Tool Provided: LOW RISK 0/3 10. Functional Assessment Tool: 11. Recreational Drug Use: Never Drug Type: Tobacco Use: Former Smoker Tobacco Type: Amount or Packs/day: How Many Years: Alcohol Use: No Frequency: Quant:
--- NOTE | 2019-01-18 08:15 | HPC ---
[facility] [address] [address] PAIN MANAGEMENT CONSULTATION Name: MATEUS CHRISTINE Ezekiel Room #: [facility] [id number] Admission: 01/17/19 ������������������ Attend Phys: Aubrie Sheikh Discharge: ������������������ Date of : 48 Report #: [id number] THIS REPORT FOR: //name// CC: Aubrie Sheikh King mae DATE OF SERVICE: 01/17/2019 CHIEF COMPLAINT: Trigeminal neuralgia. HISTORY OF PRESENT ILLNESS: This is a very pleasant 68-year-old female who returns to the pain clinic today for her refill of her medications that she uses to treat her ongoing chronic trigeminal neuralgia that affects the right side of her face. She tells me today she has a headache on the top part of her head as well as on the right side of her face. She believes that this was caused from increased blood pressures today, which is slightly elevated for her she said and also from the weather. She said her pain is a 6/10 today, which is quite high for her. Normally, her medications enable her to have almost pain free days, but today is "not a good day." The patient tells me that the wind, bright lights, loud noises and bending over make her pain worse and the medications and sleep are usually very helpful, but not today. She tells me her constipation is controlled with eokt-tif-pwilnfo medications and does not feel that she has any daytime sleepiness. She said overall except for the past 2 days, she has been doing quite well. ALLERGIES: FLAGYL. CURRENT LIST OF MEDICATIONS: Methadone 20 mg 3 times a day, omeprazole 20 mg daily, Lasix 20 mg daily, Excedrin caplet as needed, Synthroid 75 mcg daily, multivitamin, calcium, Estrace and metoprolol 100 mg daily. PQRS: 1. She has some osteoarthritis in her neck. She denies any rheumatoid arthritis. 2. Height is 5 feet 1 inch, weight is 139, BMI is 26. 3. VITAL SIGNS: Blood pressure 153/79, pulse is 51, respirations 14, oxygen sat is 100. 4. Pain score is 6/10. 5. Fall risk. She denies any dizziness, has not fallen in the last 3 months. 6. She is not on any blood thinners. She does take medicine for hypertension. 7. Opioid therapy is greater than 6 weeks; therefore, an opioid signed contract is on the chart. She does not take any blood thinners. Her functional assessment is 20/70. Her opioid risk tool is low. 9. She is a former smoker and does not use recreational drugs and does not drink alcohol. [address] [address] PAIN MANAGEMENT CONSULTATION Name: MATEUS CHRISTINE Ezekiel Room #: REG [facility]#: [id number] Admission: 01/17/19 ������������������ Attend Phys: Aubrie Sheikh Discharge: ������������������ Date of : 48 Report #: [id number] We did check the prescription monitoring system. The patient is filling appropriately from doctors within our clinic. She does have a urine drug screen on the chart that is within the past year that adheres to her medications that we write for her. The patient tells me she does safeguard her medications. PHYSICAL EXAMINATION: GENERAL: This is a very pleasant, well-developed, well-nourished 68-year-old female who appears her stated age. She is alert and orientated. Placing her pain score today at 6/10. HEENT: Normocephalic, atraumatic. Extraocular eye muscles are intact. Mucous membranes are moist. No allodynia on her face. She complains of some tenderness under her right eye today as a result of her headache. MUSCULOSKELETAL: The patient is able to walk without any difficulty. Her upper extremity and lower extremity strength judged to be 5/5 in all major muscle groups. ASSESSMENT: 1. Trigeminal neuralgia. 2. Low back pain with no radiculopathy. 3. Management of high-risk medications under terms of written opioid agreement on methadone therapy. We reviewed the fact that opiate medications are being used to provide analgesia adequate to support activities of daily living, not attempting to achieve a specific pain score on the 0-10 Visual Analog Scale. The current opiate medications are providing sufficient analgesia to allow the patient to participate in activities of daily living. The patient is not exhibiting any aberrant behavior suggestive of drug diversion. The patient is not having any adverse reactions to medications. The patient is not suffering from daytime somnolence or mental acuity changes. The patient is managing opiate-induced constipation with appropriate faek-iyl-jqfvhxe agents and dietary considerations. The patient was counseled on concern for caution with operating a motor vehicle while using opiate medications. A physical exam was performed and the patient's functional status was evaluated. All patients with back pain were advised against the bed rest greater than 4 days and were advised to return to normal activities. Pain score assessment was noted and the treatment plan was reviewed with the patient. All current medications, both prescribed and OTC were reviewed and reconciled on the electronic medical record. Tobacco screening was accomplished and smoking cessation was advised when indicated. BMI was noted and diet/exercise modification was recommended for all patients following outside normal parameters. I reviewed with the patient today their responsibilities to safeguard prescription medications, reviewed their responsibility to utilize medications [address] [address] PAIN MANAGEMENT CONSULTATION Name: MATEUS CHRISTINE Room #: REG [facility]#: [id number] Admission: 01/17/19 ������������������ Attend Phys: Aubrie Knightkristine Discharge: ������������������ Date of : 48 Report #: [id number] only as prescribed by the physician. They are to seek and receive pain medications only from 1 physician group ( [facility]). They are to use 1 pharmacy and keep the clinic informed if they change pharmacies. Their responsibilities include making followup visits in a timely fashion and to avoid abrupt discontinuation of medication usage. Their responsibilities further include bringing their medications (bottles from the pharmacy with residual pills) to the visit for possible confirmation of pill counts and the patient understands it is their responsibility to submit to random drug screens to ensure both that the medications prescribed are present, and that no other controlled substances are present. All prescriptions provided today were generated electronically. PLAN: 1. We discussed treatment options with the patient today. The patient's pain is not as well controlled today as normal due to the headache that she has. Her pain is elevated in the last few days. The patient has been taking her blood pressure medicines and unsure why it is elevated. I did encourage her if it continues to stay elevated that she needs to seek out her primary care doctor, maybe prescriptions need to be changed. 2. The patient tells me her pain had been very well controlled until this headache started and would just like a refill of her regular medications of methadone. She tells me she does not feel overly medicated and does not have problems with constipation. Scripts given today for methadone 10 mg tablets 2 tablets 3 times a day, #180 to release in 1-week and [address] Jose Carlos Blair did come and see the patient and corroborated care. 4. The patient will return in followup in 2 months. ��������������������������������������������� <ELECTRONICALLY SIGNED> ���������������������������������������� By: Aubrie Sheikh ��������������������������������������������� 01/18/19 0815 [id number] 0038 Aubrie Sheikh /nt
== END ==
LOC: PAIN 06:44
DX: G50.0 Trigeminal neuralgia (principal); I10 Essential (primary) hypertension; M47.812 Spondylosis without myelopathy or radiculopathy, cervical region; M54.5 Low back pain; Z79.891 Long term (current) use of opiate analgesic; Z79.899 Other long term (current) drug therapy; Z87.891 Personal history of nicotine dependence; Z88.8 Allergy status to other drugs, medicaments and biological substances

== ENCOUNTER → 2019-03-04 | Outpatient (CLI) | payer OTHER ==
[~2019-03-04] VITALS: Ht 154.9 cm; Wt 63.0 kg
[2019-03-04 12:33] VITALS: BP 150/110
--- NOTE | 2019-03-04 12:35 | NUR ---
Pain Clinic Assessment: 1. History of Osteoarthritis: NECK History of Rheumatoid Arthritis: Not Applicable 2. Height: 5 ft. 1 in. 154.9 cm. Weight: 139.0 lb. oz. 63.050 kg. Patient's BMI: 26.3 3. Vital Signs: BP: 150/110 Pulse: 54 Resp: 16 Temp: 02 Sat: 98 ECG Mon: 4. Pain Intensity: 6 FACE 5. Fall Risk: Dizziness: N Needs help standing or walking: N Fallen in the last 3 months: Y Fall risk comments: FELL ONE WEEK AGO- GOING TO PCP TODAY 6. Patient on Blood Thinner: None 7. History of Hypertension: Y 8. Opioid Therapy greater than 6 weeks: Y Opiate Contract Signed: 10/12/17 9. Risk Assessment Tool Provided: LOW RISK 0/3 10. Functional Assessment Tool: 11. Recreational Drug Use: Never Drug Type: Tobacco Use: Former Smoker Tobacco Type: Amount or Packs/day: How Many Years: Alcohol Use: No Frequency: Quant:
--- NOTE | 2019-03-05 15:24 | HPC ---
[facility] [address] [place] [address] PAIN MANAGEMENT CONSULTATION Name: MATEUS CHRISTINE Ezekiel Room #: REG [facility]#: [id number] Admission: 03/04/19 ������������������ Attend Phys: Aubrie Sheikh Discharge: ������������������ Date of : 48 Report #: [id number] THIS REPORT FOR: //name// CC: Aubrie Sheikh [facility] DATE OF SERVICE: 03/04/2019 CHIEF COMPLAINT: Trigeminal neuralgia. HISTORY OF PRESENT ILLNESS: This is a pleasant 68-year-old female who returns to the Pain Clinic today for refill of her medications that helps her with her trigeminal neuralgia that affects her right side of her face. Today, she tells me that she also has right knee pain because she had recently fell and does have a sore on her knee as well. Her pain score is a 6/10 in her face today. It is a sharp, pounding, numbness, tingling, burning feeling, worse with bending over, noise, lights and wind blowing. The medication is very helpful as well as a dark environment. The patient denies any problems with constipation or daytime sleepiness as a result of her medications. ALLERGIES: FLAGYL. LIST OF MEDICATIONS: Methadone 20 mg 3 times a day, Prilosec, Lasix, Excedrin caplet, Synthroid, multivitamin, Caltrate, Estrace and Toprol. PQRS: 1. She has osteoarthritis in her neck. She denies any rheumatoid arthritis. 2. Height is 5 feet 1 inch, weight is 139, BMI is 26. Vital signs 150/110, pulse is 54, respirations 16, oxygen sat is 98. 3. Pain score is 6/10. 4. Denies dizziness. Does not need help walking or standing, has fallen in the last 3 months. 5. The patient is not on any blood thinners. She does take hypertension medicines, which she is out of and did not take today. 6. Opioid therapy is greater than 6 weeks; therefore, an updated signed contract is on the chart. Her risk assessment tool is low. Functional assessment is 20/70. 7. Recreational drug use, she denies. She is a former smoker and does not drink alcohol. We did check the prescription monitoring system. The patient is filling appropriately for her medications. She is due in 2 weeks for the medication, so she is early here today and we will check a random drug screen on her today. ASSESSMENT: 1. Trigeminal neuralgia. [address] [address] PAIN MANAGEMENT CONSULTATION Name: MATEUS CHRISTINE Room #: REG [facility]#: [id number] Admission: 03/04/19 ������������������ Attend Phys: Aubrie Sheikh Discharge: ������������������ Date of : 48 Report #: [id number] 2. Low back pain without radiculopathy. 3. Right knee pain, status post recent fall. 4. Management of high risk medications under terms of written opioid agreement. PHYSICAL EXAMINATION: GENERAL: This is a pleasant, well-developed, well-nourished 68-year-old female who appears her stated age. She is alert and orientated, placing her pain score today at 6/10. HEENT: Normocephalic, atraumatic. Extraocular eye muscles are intact. Mucous membranes are moist. No allodynia on her face. She has tenderness on the right side of her face under her right eye today. MUSCULOSKELETAL: The patient is walking with a slightly antalgic gait. She does have an open lesion on her right knee today as a result of her recent fall. No ecchymosis noted. Her upper and lower extremity strength judged to be 5/5 in all major muscle groups. We reviewed the fact that opiate medications are being used to provide analgesia adequate to support activities of daily living, not attempting to achieve a specific pain score on the 0-10 Visual Analog Scale. The current opiate medications are providing sufficient analgesia to allow the patient to participate in activities of daily living. The patient is not exhibiting any aberrant behavior suggestive of drug diversion. The patient is not having any adverse reactions to medications. The patient is not suffering from daytime somnolence or mental acuity changes. The patient is managing opiate-induced constipation with appropriate gfod-tho-ktxeclm agents and dietary considerations. The patient was counseled on concern for caution with operating a motor vehicle while using opiate medications. A physical exam was performed and the patient's functional status was evaluated. All patients with back pain were advised against the bed rest greater than 4 days and were advised to return to normal activities. Pain score assessment was noted and the treatment plan was reviewed with the patient. All current medications, both prescribed and OTC were reviewed and reconciled on the electronic medical record. Tobacco screening was accomplished and smoking cessation was advised when indicated. BMI was noted and diet/exercise modification was recommended for all patients following outside normal parameters. I reviewed with the patient today their responsibilities to safeguard prescription medications, reviewed their responsibility to utilize medications only as prescribed by the physician. They are to seek and receive pain medications only from 1 physician group ([facility]). They are to use 1 pharmacy and keep the clinic informed if they change pharmacies. Their responsibilities include making followup visits in a timely fashion and to avoid abrupt discontinuation of medication usage. Their responsibilities further include bringing their medications (bottles from the pharmacy with residual [address] [address] PAIN MANAGEMENT CONSULTATION Name: MATEUS CHRISTINE Room #: REG [facility]#: [id number] Admission: 03/04/19 ������������������ Attend Phys: Aubrie Sheikh Discharge: ������������������ Date of : 48 Report #: [id number] pills) to the visit for possible confirmation of pill counts and the patient understands it is their responsibility to submit to random drug screens to ensure both that the medications prescribed are present, and that no other controlled substances are present. All prescriptions provided today were generated electronically. PLAN: 1. We discussed treatment options with the patient today. The patient tells me that her methadone is helpful in controlling her pain. Scripts given today for 10 mg tablets of methadone, 2 three times a day, quantity is 180, to release in 2 weeks and 6 weeks. 2. The patient encouraged to get her blood pressure medicine refilled today since her blood pressure is elevated. She does take Toprol-XL. 3. The patient will be seen in slightly over 2 months for refill. The patient is seen with Dr. Jose Carlos Blair today who collaborated care and did see the patient as well. ��������������������������������������������� <ELECTRONICALLY SIGNED> ���������������������������������������� By: Aubrie Sheikh ��������������������������������������������� 03/05/19 1524 [id number] Aubrie Sheikh /ishan
== END ==
LOC: PAIN 10:24
DX: G50.0 Trigeminal neuralgia (principal); M54.5 Low back pain; M25.561 Pain in right knee; Z79.891 Long term (current) use of opiate analgesic; W19.XXXA Unspecified fall, initial encounter

== ENCOUNTER → 2019-04-29 | Outpatient (CLI) | payer OTHER ==
[~2019-04-29] VITALS: Ht 154.9 cm; Wt 62.1 kg
[~2019-04-29] MED LIST changes: +COZAAR 25 MG TA25 M1 PO
[2019-04-29 12:48] VITALS: BP 117/69
--- NOTE | 2019-04-29 13:02 | NUR ---
Pain Clinic Assessment: 1. History of Osteoarthritis: NECK History of Rheumatoid Arthritis: Not Applicable 2. Height: 5 ft. 1 in. 154.9 cm. Weight: 137.0 lb. oz. 62.143 kg. Patient's BMI: 25.9 3. Vital Signs: BP: 117/69 Pulse: 56 Resp: 16 Temp: 02 Sat: 97 ECG Mon: 4. Pain Intensity: 2 5. Fall Risk: Dizziness: N Needs help standing or walking: N Fallen in the last 3 months: N Fall risk comments: FELL ONE WEEK AGO- GOING TO PCP TODAY 6. Patient on Blood Thinner: None 7. History of Hypertension: Y 8. Opioid Therapy greater than 6 weeks: Y Opiate Contract Signed: 10/12/17 9. Risk Assessment Tool Provided: LOW RISK 0/3 10. Functional Assessment Tool: 11. Recreational Drug Use: Never Drug Type: Tobacco Use: Former Smoker Tobacco Type: Amount or Packs/day: How Many Years: Alcohol Use: No Frequency: Quant:
--- NOTE | 2019-05-02 12:44 | HPC ---
[facility] [address] [place] [address] PAIN MANAGEMENT CONSULTATION Name: MATEUS CHRISTINE Ezekiel [facility] [id number] Admission: 04/29/19 ������������������ Attend Phys: Aubrie Sheikh Discharge: ������������������ Date of : 48 Report #: [id number] THIS REPORT FOR: //name// CC: Aubrie Fisher DATE OF SERVICE: 04/29/2019 CHIEF COMPLAINT: Trigeminal neuralgia. HISTORY OF PRESENT ILLNESS: This is a pleasant 68-year-old female who returns to the pain clinic today for a refill of her medications that she uses to help treat her trigeminal neuralgia that affects her right side of her face. She reports a pain score of a 2/10 today. She tells me that she is having a good day. She reports starting a new blood pressure medicine of Cozaar since her last visit, she feels that this has been very beneficial in reducing her blood pressure. It is 117/69 today as well as helping some of her facial pain. She had reported more pressure and pounding in her last visits, but feels that may have been just related to her high blood pressures that she had been experiencing. The patient reports that she has been busy helping care for her who has been having multiple health issues and she is going to undergo a small outpatient procedure later this week, but she has been having to increase her care that she gets to him at home. This has also aided in her stress level that she has at home she associated her high blood pressure with that, but realizes now that that was not the only case and has been feeling much better since she has adjusted her medications and also continued her methadone therapy. ALLERGIES: FLAGYL. CURRENT LIST OF MEDICATIONS: Losartan 25 mg daily, methadone 20 mg 3 times a day, omeprazole, Lasix, Excedrin capsules, Synthroid, multivitamin, calcium, Estrace and metoprolol. PQRS: 1. She has osteoarthritis in her neck. Denies any rheumatoid arthritis. 2. Height is 5 feet 1 inch, weight is 137, BMI is 25. 3. Vital signs 117/69, pulse is 56, respirations 16, oxygen sat is 97. 4. Pain score is 2/10. 5. Denies dizziness, does not need help walking or standing, had fallen greater than 2 months ago. 6. The patient is not on any blood thinners, but does take medicine for hypertension. Opioid therapy is greater than 6 weeks; therefore, an opiate signed contract is on the chart. Risk assessment tool is [place] [id number] PAIN MANAGEMENT CONSULTATION Name: MATEUS CHRISTINE Room #: REG [facility] Dorcas#: [id number] Admission: 04/29/19 ������������������ Attend Phys: Aubrie Sheikh Discharge: ������������������ Date of : 48 Report #: [id number] assessment is . 7. Recreational drug use, she denies. She is a former smoker and does not drink alcohol. 8. According to the prescription monitoring system, the patient is filling appropriately for her medications. She is due for those in a couple of weeks. There is a recent drug screen on the chart that is appropriate for her medications as well, but does show nicotine use. ASSESSMENT: 1. Trigeminal neuralgia. 2. Low back pain without radiculopathy. 3. Management of high risk medications under terms of written opioid agreement. PHYSICAL EXAMINATION: GENERAL: This is a pleasant, well-developed, well-nourished 68-year-old female who appears her stated age, placing her current pain score 2/10. She is alert and orientated. HEENT: Normocephalic, atraumatic. Extraocular eye muscles are intact. No allodynia on her face. She has tenderness on the right side of her face. MUSCULOSKELETAL: The patient walks with a slightly antalgic gait. Upper and lower extremity strength judged to be 5/5 in all major muscle groups. She does complain of some slight low back pain that is intermittent. We reviewed the fact that opiate medications are being used to provide analgesia adequate to support activities of daily living, not attempting to achieve a specific pain score on the 0-10 Visual Analog Scale. The current opiate medications are providing sufficient analgesia to allow the patient to participate in activities of daily living. The patient is not exhibiting any aberrant behavior suggestive of drug diversion. The patient is not having any adverse reactions to medications. The patient is not suffering from daytime somnolence or mental acuity changes. The patient is managing opiate-induced constipation with appropriate lopl-rre-kbytanf agents and dietary considerations. The patient was counseled on concern for caution with operating a motor vehicle while using opiate medications. A physical exam was performed and the patient's functional status was evaluated. All patients with back pain were advised against the bed rest greater than 4 days and were advised to return to normal activities. Pain score assessment was noted and the treatment plan was reviewed with the patient. All current medications, both prescribed and OTC were reviewed and reconciled on the electronic medical record. Tobacco screening was accomplished and smoking cessation was advised when indicated. BMI was noted and diet/exercise modification was recommended for all patients following outside normal parameters. I reviewed with the patient today their responsibilities to [address] [address] PAIN MANAGEMENT CONSULTATION Name: MATEUS CHRISTINE Room #: REG [facility]#: [id number] Admission: 04/29/19 ������������������ Attend Phys: Aubrie Sheikh Discharge: ������������������ Date of : 48 Report #: [id number] prescription medications, reviewed their responsibility to utilize medications only as prescribed by the physician. They are to seek and receive pain medications only from 1 physician group ( [facility]). They are to use 1 pharmacy and keep the clinic informed if they change pharmacies. Their responsibilities include making followup visits in a timely fashion and to avoid abrupt discontinuation of medication usage. Their responsibilities further include bringing their medications (bottles from the pharmacy with residual pills) to the visit for possible confirmation of pill counts and the patient understands it is their responsibility to submit to random drug screens to ensure both that the medications prescribed are present, and that no other controlled substances are present. All prescriptions provided today were generated electronically. PLAN: 1. We discussed treatment options with her today. I told her I was happy that she had finally seen the primary care doctor regarding her blood pressure since it had been elevated at several visits that we had discussed. It is at 117/69 today. The patient informed me that she does take her blood pressure on a daily schedule now and it has been in that range since starting her new medication. 2. The patient tells me that the methadone is very beneficial at 20 mg 3 times a day. The patient is on a high morphine milliequivalent dose and has been on this dose for several years, which is very beneficial in controlling her trigeminal neuralgia. No changes will be made today. Scripts were given to release in 2 weeks and again in [address] Jose Carlos Blair did see the patient as well today and collaborated care. The patient will follow up in 2 months' time. ��������������������������������������������� <ELECTRONICALLY SIGNED> ���������������������������������������� By: Aubrie Sheikh ��������������������������������������������� 05/02/19 1244 [id number] Aubrie Sheikh /nt
== END ==
LOC: PAIN 06:48
DX: G50.0 Trigeminal neuralgia (principal); M54.5 Low back pain; Z79.899 Other long term (current) drug therapy; Z79.891 Long term (current) use of opiate analgesic; Z88.8 Allergy status to other drugs, medicaments and biological substances

== ENCOUNTER → 2019-07-04 | Outpatient (CLI) | payer OTHER ==
[~2019-07-04] VITALS: Ht 154.9 cm; Wt 63.5 kg
[2019-07-04 13:45] VITALS: BP 133/69
--- NOTE | 2019-07-04 14:10 | NUR ---
Pain Clinic Assessment: 1. History of Osteoarthritis: NECK History of Rheumatoid Arthritis: Not Applicable 2. Height: 5 ft. 1 in. 154.9 cm. Weight: 140.0 lb. oz. 63.504 kg. Patient's BMI: 26.5 3. Vital Signs: BP: 133/69 Pulse: 52 Resp: 14 Temp: 02 Sat: 97 ECG Mon: 4. Pain Intensity: 4 5. Fall Risk: Dizziness: N Needs help standing or walking: N Fallen in the last 3 months: Y Fall risk comments: FELL ONE WEEK AGO- GOING TO PCP TODAY 6. Patient on Blood Thinner: None 7. History of Hypertension: Y 8. Opioid Therapy greater than 6 weeks: Y Opiate Contract Signed: 10/12/17 9. Risk Assessment Tool Provided: LOW RISK 0/3 10. Functional Assessment Tool: 11. Recreational Drug Use: Never Drug Type: Tobacco Use: Former Smoker Tobacco Type: Amount or Packs/day: How Many Years: Alcohol Use: No Frequency: Quant:
--- NOTE | 2019-07-05 12:33 | HPC ---
[facility] [address] [place] [address] PAIN MANAGEMENT CONSULTATION Name: MATEUS CHRISTINE Room #: [facility] [id number] Admission: 07/04/19 Attend Phys: Aubrie Sheikh Discharge: Date of : 48 Report #: [id number] THIS REPORT FOR: //name// CC: Aubrie Blair MD DATE OF SERVICE: 07/04/2019 CHIEF COMPLAINT: Trigeminal neuralgia. HISTORY OF PRESENT ILLNESS: This is a very pleasant 68-year-old female who returned to the pain clinic today with her daughter for a refill of her medications that she uses to help treat her trigeminal neuralgia that affects her right side of her face. She finds the methadone medication very beneficial in controlling her pain. Her pain score is 4/10 today, which is slightly elevated than her norm due to the cold weather we are having. The wind blowing and loud noises do affect her pain and causes her to have a shocking stabbing feeling. She feels that usually the medication as well as distraction and sleep are very beneficial. She denies any problems with constipation or daytime sleepiness from her medications. The patient does report that she has been busy helping care for her who has been ailing. The daughter has been very beneficial in helping too. She has been very stressed trying to figure out her household situation because of his care needs. They are not wanting to move to a different living situation. The enjoy the house they are in, but it is not quite feasible for them to shower him and care for him in the current situation of their home. ALLERGIES: FLAGYL. CURRENT LIST OF MEDICINES: Methadone 10 mg 2 in the morning, 2 midday, 2 night; Cozaar 25 mg daily; Prilosec 20 mg daily; Lasix 20 mg p.r.n.; Synthroid 225 mg daily; multivitamin; Caltrate; Estrace 2 mg daily and metoprolol 100 mg daily. PQRS: 1. She has osteoarthritic changes in her neck. She denies any rheumatoid arthritis. 2. Height is 5 feet 1 inch, weight is 140, BMI is 26. 3. 133/69, pulse is 52, respirations 14, oxygen sat is 97. 4. Pain score is 4/10. 5. Denies dizziness, does not need help walking or standing, has not fallen in the last 3 months. 6. The patient is not on blood thinners, does take medicine for hypertension. 7. Opioid therapy is greater than 6 weeks; therefore, an opioid signed contract [address] [address] PAIN MANAGEMENT CONSULTATION Name: MATEUS CHRISTINE [facility] [id number] Admission: 07/04/19 Attend Phys: Aubrie Sheikh Discharge: Date of : 48 Report #: [id number] is on the chart. Risk assessment tool is low. Functional assessment is . 8. Recreational drug use, she denies. She is a former smoker and does not drink alcohol. According to the prescription monitoring system, the patient is due later this week for her medication refill. She has no aberrant behaviors noted and had no adverse reactions to her medicines. There is a recent drug screen on the chart that is appropriate as well. IMPRESSION: 1. Trigeminal neuralgia. 2. Low back pain without radiculopathy. 3. Management of high-risk medications under terms of written opioid agreement. PHYSICAL EXAMINATION: GENERAL: This is a pleasant and alert and orientated 68-year-old female who appears her stated age, placing her current pain score at 4/5 today. She is a good historian. HEENT: Normocephalic, atraumatic. Extraocular eye muscles are intact. There is no allodynia present on her face. She has tenderness on the right side of her face. MUSCULOSKELETAL: She walks with a slightly antalgic gait. Does have low back tenderness that is intermittent in her lumbosacral area. Her lower extremity strength judged to be 5/5 in all major muscle groups. PLAN: 1. We discussed treatment options with the patient today. The patient feels the methadone is very beneficial allowing her to keep active. We will refill 20 mg t.i.d., quantity 180 of 10-mg tablets were sent electronically to [facility] for today and 4-week release. 2. We discussed in length about caring for her who has been declining health miller. She would like to stay in her house. We did talk about having the shower altered, so he can bathe with a rolling chair in there. Family is going to look into that possibility. 3. Dr. Jose Carlos Blair did see the patient and collaborated care. The patient will follow up in 2 months. <ELECTRONICALLY SIGNED> By: Aubrie Sheikh 07/05/19 1233 [id number] Aubrie Sheikh /nt
== END ==
LOC: PAIN 07:04
DX: G50.0 Trigeminal neuralgia (principal); M54.5 Low back pain; Z79.891 Long term (current) use of opiate analgesic

== ENCOUNTER → 2019-08-22 | Outpatient (CLI) | payer MEDICARE ==
[~2019-08-22] VITALS: Ht 154.9 cm; Wt 63.5 kg
[2019-08-22 10:13] VITALS: BP 150/80
--- NOTE | 2019-08-22 10:19 | NUR ---
Pain Clinic Assessment: 1. History of Osteoarthritis: NECK History of Rheumatoid Arthritis: Not Applicable 2. Height: 5 ft. 1 in. 154.9 cm. Weight: 140.0 lb. oz. 63.504 kg. Patient's BMI: 26.5 3. Vital Signs: BP: 150/80 Pulse: 53 Resp: 14 Temp: 02 Sat: 98 ECG Mon: 4. Pain Intensity: 2-4 5. Fall Risk: Dizziness: N Needs help standing or walking: N Fallen in the last 3 months: N Fall risk comments: FELL ONE WEEK AGO- GOING TO PCP TODAY 6. Patient on Blood Thinner: None 7. History of Hypertension: Y 8. Opioid Therapy greater than 6 weeks: Y Opiate Contract Signed: 10/12/17 9. Risk Assessment Tool Provided: LOW RISK 0/3 10. Functional Assessment Tool: 11. Recreational Drug Use: Never Drug Type: Tobacco Use: Former Smoker Tobacco Type: Amount or Packs/day: How Many Years: Alcohol Use: No Frequency: Quant:
--- NOTE | 2019-08-22 16:10 | HPC ---
[facility] [address] [address] PAIN MANAGEMENT CONSULTATION Name: MATEUS CHRISTINE Ezekiel Room #: REG [facility] Dorcas#: [id number] Admission: 08/22/19 Attend Phys: Aubrie Sheikh Discharge: Date of : 48 Report #: [id number] THIS REPORT FOR: //name// CC: Aubrie Blair MD DATE OF SERVICE: 08/22/2019 CHIEF COMPLAINT: Trigeminal neuralgia. HISTORY OF PRESENT ILLNESS: This is a very pleasant 68-year-old female who returns today for a refill of her medications that she uses to help treat her ongoing trigeminal neuralgia that affects right side of her face. She is here quite tearful today stating her is in the ICU at [facility]. He had been doing quite well since his last hospitalization and they had to take him via ambulance for internal bleeding. They are unsure of the source, so she has been at the hospital quite a bit over the holiday season. She does report a pain score of 2-3. Currently, she feels that she is doing quite well despite all the stress. She said it is a distraction of her own pain, having to deal with him. The patient reports that normally her pain is worse with cold, bright sunlight and blowing wind. It is a stabbing, shocking pain that fills the medication and as well as these distractions have been beneficial in regards to her own pain. ALLERGIES: FLAGYL. CURRENT LIST OF MEDICATIONS: Methadone 20 mg 3 times a day, Cozaar, Prilosec, Lasix, Excedrin, Synthroid, multivitamin, calcium, Estrace, Toprol. PATIENT'S PQRS: 1. She has a history of osteoarthritic changes in her neck. Denies any rheumatoid arthritis. Height is 5 feet 1 inch, weight is 140, BMI is 26. Vital signs, 150/80, pulse is 53, respirations 14, oxygen sat is 98. 2. Pain score is 2-4. 3. Denies dizziness, does not need help walking or standing, has not fallen in the last 3 months. 4. The patient is not on any blood thinners, but does take medicine for hypertension. 5. Opiate therapy is greater than 6 weeks; therefore, an opioid signed contract is on the chart. Risk assessment tool is low. Functional assessment is . 6. Recreational drug use, she denies. She is a former smoker and does not drink alcohol. According to the prescription monitoring system, the patient is filling appropriately, is due in 2 weeks for her medication. She fills at [address] [address] PAIN MANAGEMENT CONSULTATION Name: MATEUS CHRISTINE Ezekiel Room #: REG [facility]#: [id number] Admission: 08/22/19 Attend Phys: Aubrie Sheikh Discharge: Date of : 48 Report #: [id number] Chopper. There is a recent drug screen on the chart that is appropriate as well. According to the CDC guidelines, her morphine mEq is quite high at 200 per day, but she has been stable on this dose and does quite well. PHYSICAL EXAMINATION: GENERAL: This is a very pleasant and alert 68-year-old female who appears her stated age, placing her current pain score from 2-4/10 today. HEENT: Normocephalic, atraumatic. Extraocular eye muscles are intact. She has tenderness on the right side of her face along her jawline with no allodynia present. MUSCULOSKELETAL: She has a slightly antalgic gait. Lower extremity strength judged to be 5/5 in all major muscle groups. She has intermittent lumbar-sacral tenderness with no radiculopathy. IMPRESSION: 1. Trigeminal neuralgia. 2. Low back pain without radiculopathy. 3. Management of high risk medications under terms of written opioid agreement. PLAN: 1. We discussed treatment options with the patient today. The patient finds her medication very beneficial in controlling her pain and allows her to keep active with her ADLs and other activities as she is able. The patient is not having any adverse reactions to her medications or side effects. We will e-prescribe her methadone 10 mg, #180, the patient takes 20 mg 3 times a day to her [facility] for release on 08/28/2019 and 09/24/2019. 2. The patient is seen in collaboration with Dr. Jose Carlos Blair today. <ELECTRONICALLY SIGNED> By: Aubrie Sheikh 08/22/19 1610 [id number] Aubrie Sheikh /nt
== END ==
LOC: PAIN 06:45
DX: G50.0 Trigeminal neuralgia (principal); M54.5 Low back pain; Z79.891 Long term (current) use of opiate analgesic

== ENCOUNTER → 2019-11-11 | Outpatient (CLI) | payer MEDICARE ==
[~2019-11-11] VITALS: Ht 154.9 cm; Wt 63.5 kg
[2019-11-11 13:35] VITALS: BP 127/78
--- NOTE | 2019-11-11 13:38 | NUR ---
Pain Clinic Assessment: 1. History of Osteoarthritis: NECK History of Rheumatoid Arthritis: DENIES 2. Height: 5 ft. 1 in. 154.9 cm. Weight: 140.0 lb. oz. 63.504 kg. Patient's BMI: 26.5 3. Vital Signs: BP: 127/78 Pulse: 53 Resp: 14 Temp: 02 Sat: 96 ECG Mon: 4. Pain Intensity: 2-3 5. Fall Risk: Dizziness: N Needs help standing or walking: N Fallen in the last 3 months: N Fall risk comments: FELL ONE WEEK AGO- GOING TO PCP TODAY 6. Patient on Blood Thinner: None 7. History of Hypertension: Y 8. Opioid Therapy greater than 6 weeks: Y Opiate Contract Signed: 10/12/17 9. Risk Assessment Tool Provided: LOW RISK 0/3 10. Functional Assessment Tool: 11. Recreational Drug Use: Never Drug Type: Tobacco Use: Former Smoker Tobacco Type: Amount or Packs/day: How Many Years: Alcohol Use: No Frequency: Quant:
--- NOTE | 2019-11-11 15:40 | HPC ---
[facility] [address] [place] [address] PAIN MANAGEMENT CONSULTATION Name: MATEUS CHRISTINE [id number] Admission: 11/11/19 Attend Phys: Aubrie Sheikh Discharge: Date of : 48 Report #: [id number] THIS REPORT FOR: cc: King Fisher MD, Christopher B. MD Hocker,Aubrie MENDOZA ~ DATE OF SERVICE: 11/11/2019 CHIEF COMPLAINT: Trigeminal neuralgia. HISTORY OF PRESENT ILLNESS: This is a very pleasant 68-year-old female who returns to the pain clinic today for refill of her medications that she uses to treat her trigeminal neuralgia. She reports the right side of her face feels like shocking sensations, especially under her right eye. She has tenderness in her jaw line as well, rating at a 2-3 today. She feels that it is most problematic when the wind is blowing it or she is around loud noises. She feels the medications are very beneficial in controlling her pain as well as sleep in a dark environment. She denies any problems with constipation or daytime sleepiness. The patient continues to talk about the increased stress she is having in her life; she says that has been harder to deal with recently; her has been hospitalized several times with various infections. She is currently caring for him at home. 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 ALLERGIES: FLAGYL. CURRENT LIST OF MEDICATIONS: Methadone 20 mg 3 times a day, losartan, omeprazole, Lasix, aspirin, Synthroid, multivitamin, calcium, Estrace and metoprolol. PQRS: 1. She has osteoarthritis in her neck. Denies any rheumatoid arthritis. 2. Height is 5 feet 1 inch. 3. Weight is 140, BMI is 26. 4. Vital signs 127/78, pulse is 53, respirations 14, oxygen sat is 96. 5. Pain score is 2-3. 6. Denies dizziness, does not need help walking or standing, has not fallen in the last 3 months. 7. The patient is not on any blood thinners, but does have hypertension. 8. Opioid therapy is greater than 6 weeks; therefore, an opioid signed contract is on the chart. Risk assessment tool is low. Functional assessment is . 9. Recreational drug use, she denies. She is a former smoker and does not drink alcohol. [address] [address] PAIN MANAGEMENT CONSULTATION Name: MATEUS CHRISTINE [id number] Admission: 11/11/19 Attend Phys: Aubrie Sheikh Discharge: Date of : 48 Report #: [id number] According to the prescription monitoring system, the patient is filling appropriate for her medications in a timely fashion. She is due to fill those medications early next week. According to the CDC guidelines, her morphine mEq is quite high at 180, but she has been very well controlled on this current dose. PHYSICAL EXAMINATION: GENERAL: This is a very pleasant and alert 68-year-old female who appears her stated age, placing her current pain score from 2 to 3. HEENT: Normocephalic, atraumatic. Extraocular eye muscles are intact. She has tenderness on the right side of her face along her jawline with no allodynia present as well as tenderness under her right eye and orbital area. MUSCULOSKELETAL: She has a slightly antalgic gait with scoliosis present. Her lower extremity strength judged to be 5/5 in all major muscle groups. IMPRESSION: 1. Trigeminal neuralgia. 2. Low back pain with radiculopathy. 3. Management of high risk medications under terms of written opioid agreement. We reviewed the fact that opiate medications are being used to provide analgesia adequate to support activities of daily living, not attempting to achieve a specific pain score on the 0-10 Visual Analog Scale. The current opiate medications are providing sufficient analgesia to allow the patient to participate in activities of daily living. The patient is not exhibiting any aberrant behavior suggestive of drug diversion. The patient is not having any adverse reactions to medications. The patient is not suffering from daytime somnolence or mental acuity changes. The patient is managing opiate-induced constipation with appropriate snvs-mqq-iznderm agents and dietary considerations. The patient was counseled on concern for caution with operating a motor vehicle while using opiate medications. A physical exam was performed and the patient's functional status was evaluated. All patients with back pain were advised against the bed rest greater than 4 days and were advised to return to normal activities. Pain score assessment was noted and the treatment plan was reviewed with the patient. All current medications, both prescribed and OTC were reviewed and reconciled on the electronic medical record. Tobacco screening was accomplished and smoking cessation was advised when indicated. BMI was noted and diet/exercise modification was recommended for all patients following outside normal parameters. I reviewed with the patient today their responsibilities to safeguard prescription medications, reviewed their responsibility to utilize medications only as prescribed by the physician. They are to seek and receive pain [address] [address] PAIN MANAGEMENT CONSULTATION Name: MATEUS CHRISTINE Room #: REG [facility]ano#: [id number] Admission: 11/11/19 Attend Phys: Aubrie Sheikh Discharge: Date of : 48 Report #: [id number] medications only from 1 physician group ( [facility]). They are to use 1 pharmacy and keep the clinic informed if they change pharmacies. Their responsibilities include making followup visits in a timely fashion and to avoid abrupt discontinuation of medication usage. Their responsibilities further include bringing their medications (bottles from the pharmacy with residual pills) to the visit for possible confirmation of pill counts and the patient understands it is their responsibility to submit to random drug screens to ensure both that the medications prescribed are present, and that no other controlled substances are present. All prescriptions provided today were generated electronically. PLAN: 1. We discussed treatment options with the patient today. The patient reports she is having a stressful time with her at home caring for him. She is worried about coming to the hospital today regarding the COVID virus and what she may take home. She is thankful that we have been very careful with our cleaning techniques while she is here to help prevent the spread, we will give her scripts today for methadone 10 mg 2 t.i.d., quantity 180 for today and 4 weeks supply. These will be given to her by Dr. Jose Carlos Blair. 2. The patient states her daughter is worried that at times she catches her foot due to her scoliosis and her length of her feet being uneven. This has happened twice and caused her to fall when she has not been wearing her elevated shoe. I encouraged the patient to possibly use a cane or walker. We could discuss physical therapy, but I believe at this time most of his therapy places are closed due to the COVID-19 virus. 3. We did discuss briefly if the patient is able to take less medicines on some days and have a slight reserve of her medications due to the outbreak currently, we do not know if there will be disruption in the supply chain for medications. Currently, we have not heard of this, but planning for the future. The patient verbalizes understanding. She will attempt to take less on some days. 4. The patient is seen in collaboration with Dr. Jose Calros Blair. <ELECTRONICALLY SIGNED> By: Aubrie Sheikh 11/11/19 1540 [id number] Aubrie Sheikh /nt
== END ==
LOC: PAIN 11-04 06:48
DX: G50.0 Trigeminal neuralgia (principal); M54.5 Low back pain; Z88.8 Allergy status to other drugs, medicaments and biological substances; Z79.84 Long term (current) use of oral hypoglycemic drugs; Z79.891 Long term (current) use of opiate analgesic; Z79.899 Other long term (current) drug therapy

== ENCOUNTER → 2020-01-06 | Outpatient (CLI) | payer OTHER ==
[~2020-01-06] VITALS: Ht 154.9 cm; Wt 64.0 kg
[2020-01-06 10:50] VITALS: BP 129/83
--- NOTE | 2020-01-06 11:00 | NUR ---
Pain Clinic Assessment: 1. History of Osteoarthritis: NECK History of Rheumatoid Arthritis: DENIES 2. Height: 5 ft. 1 in. 154.9 cm. Weight: 141.0 lb. oz. 63.957 kg. Patient's BMI: 26.7 3. Vital Signs: BP: 129/83 Pulse: 51 Resp: 16 Temp: 02 Sat: 100 ECG Mon: 4. Pain Intensity: 2 USUAL- 6 TODAY 5. Fall Risk: Dizziness: N Needs help standing or walking: N Fallen in the last 3 months: N Fall risk comments: FELL ONE WEEK AGO- GOING TO PCP TODAY 6. Patient on Blood Thinner: None 7. History of Hypertension: Y 8. Opioid Therapy greater than 6 weeks: Y Opiate Contract Signed: 10/12/17 9. Risk Assessment Tool Provided: LOW RISK 0/3 10. Functional Assessment Tool: 11. Recreational Drug Use: Never Drug Type: Tobacco Use: Former Smoker Tobacco Type: Amount or Packs/day: How Many Years: Alcohol Use: No Frequency: Quant:
--- NOTE | 2020-01-06 15:09 | HPC ---
[facility] [address] [address] [place] [address] PAIN MANAGEMENT CONSULTATION Name: MATEUS CHRISTINE Room #: REG [facility]#: [id number] Admission: 01/06/20 Attend Phys: Aubrie Sheikh Discharge: Date of : 48 Report #: [id number] THIS REPORT FOR: cc: King Fisher MD, Christopher B. MD Hocker, Amanda CNS ~ CC: Jose Carlos Blair MD DATE OF SERVICE: 01/06/2020 CHIEF COMPLAINT: Trigeminal neuralgia. HISTORY OF PRESENT ILLNESS: As you know, this is a very pleasant 69-year-old female who returns to the pain clinic today for refill of her opioid medications that she uses to help treat her pain on the right side of her face. Today, she is stating that it is slightly elevated, rating it as 6/10. She is unsure why, though it may be that she is wearing a facial mask due to the COVID virus. Normally, her pain score is a 1-2, very well controlled with her methadone therapy. She states that when she has pain, it is a shocking stabbing pain that is usually worse with sun and wind or loud noises. The medication is beneficial. She does not have any problems with daytime somnolence or constipation as a result of her opioids. Today, she would like a refill of this medication. ALLERGIES: FLAGYL. CURRENT LIST OF MEDICATIONS: Methadone 20 mg 3 times a day, losartan, Prilosec, Lasix, Excedrin, Synthroid, multivitamin, Caltrate, Estrace and Toprol. PQRS: 1. She has osteoarthritic changes in her neck. Denies any rheumatoid arthritis. 2. Height is 5 feet 1 inches, weight is 141, BMI is 26. 3. Vital signs 129/83, pulse is 51, respirations 16, oxygen sat is 100. Pain score is 6/10 today. 4. Fall risk. Denies dizziness, does not need help walking or standing, has not fallen in the last 3 months. 5. The patient is not on any blood thinners, but does take medicine for hypertension. 6. Her opioid therapy is greater than 6 weeks; therefore, an opioid signed contract is on the chart. Risk assessment tool is low. Functional assessment is 20/70. 7. Recreational drug use, she denies. She is a former smoker and does not drink alcohol. According to the prescription monitoring system, the patient is filling [facility] [address] [place] [address] PAIN MANAGEMENT CONSULTATION Name: MATEUS CHRISTINE Room #: REG [facility] Dorcas#: [id number] Admission: 01/06/20 Attend Phys: Aubrie Sheikh Discharge: Date of : 48 Report #: [id number] appropriately for her medications in a timely fashion from Dr. Jose Carlos Blair. She is due to fill later this week. Her morphine mEq is quite high at 180, but she has been very well controlled on this regimen for quite some time. PHYSICAL EXAMINATION: GENERAL: This is a very pleasant and alert, well-developed, well-nourished 69-year-old female who appears her stated age, placing her current pain score at 6/10 today. HEENT: Normocephalic, atraumatic. Extraocular eye muscles are intact. She wears a mask today. She has tenderness on the right side of her face that radiates into her jaw line. No allodynia present, but is tender to touch under her eye and cheek bone. MUSCULOSKELETAL: She has an antalgic gait. Lower extremity strength judged to be 5/5 in all major muscle groups. She has a history of scoliosis. IMPRESSION: 1. Trigeminal neuralgia. 2. Low back pain related to scoliosis. 3. Management of high risk medications under terms of written opioid agreement. We reviewed the fact that opiate medications are being used to provide analgesia adequate to support activities of daily living, not attempting to achieve a specific pain score on the 0-10 Visual Analog Scale. The current opiate medications are providing sufficient analgesia to allow the patient to participate in activities of daily living. The patient is not exhibiting any aberrant behavior suggestive of drug diversion. The patient is not having any adverse reactions to medications. The patient is not suffering from daytime somnolence or mental acuity changes. The patient is managing opiate-induced constipation with appropriate egom-fzm-rjnlwbv agents and dietary considerations. The patient was counseled on concern for caution with operating a motor vehicle while using opiate medications. PLAN: 1. We discussed treatment options with the patient today. We will refill her opioid medications of methadone 10 mg tablets 2 tablets 3 times a day, quantity 180 for today and 4 weeks supply. She is very well controlled on this medication with limited side effects. 2. We did discuss the COVID virus and encouraged her to wear her mask at all times since she does have a at home that is immunosuppressed as well as she is the caregiver for him. The patient verbalizes understanding. She has been staying home, but does take precautions. [facility] [address] [place] [address] PAIN MANAGEMENT CONSULTATION Name: MATEUS CHRISTINE Room #: REG [facility] Dorcas#: [id number] Admission: 01/06/20 Attend Phys: Aubrie Sheikh Discharge: Date of : 48 Report #: [id number] 3. The patient is seen today in collaboration with Dr. Jose Carlos Blair who did see the patient as well. <ELECTRONICALLY SIGNED> By: Aubrie Sheikh 01/06/20 1509 [id number] Aubrie Sheikh /nt
== END ==
LOC: PAIN 06:58
DX: G50.0 Trigeminal neuralgia (principal); M54.5 Low back pain; F11.20 Opioid dependence, uncomplicated; Z88.8 Allergy status to other drugs, medicaments and biological substances; Z79.899 Other long term (current) drug therapy

== ENCOUNTER → 2020-02-20 | Outpatient (CLI) | payer OTHER ==
[~2020-02-20] VITALS: Ht 154.9 cm; Wt 63.9 kg
[2020-02-20 09:40] VITALS: BP 148/79
--- NOTE | 2020-02-20 09:46 | NUR ---
Pain Clinic Assessment: 1. History of Osteoarthritis: NECK History of Rheumatoid Arthritis: DENIES 2. Height: 5 ft. 1 in. 154.9 cm. Weight: 140.8 lb. oz. 63.866 kg. Patient's BMI: 26.6 3. Vital Signs: BP: 148/79 Pulse: 67 Resp: 18 Temp: 02 Sat: 98 ECG Mon: 4. Pain Intensity: 6 5. Fall Risk: Dizziness: N Needs help standing or walking: N Fallen in the last 3 months: N Fall risk comments: FELL ONE WEEK AGO- GOING TO PCP TODAY 6. Patient on Blood Thinner: None 7. History of Hypertension: Y 8. Opioid Therapy greater than 6 weeks: Y Opiate Contract Signed: 10/12/17 9. Risk Assessment Tool Provided: LOW RISK 0/3 10. Functional Assessment Tool: 11. Recreational Drug Use: Never Drug Type: Tobacco Use: Former Smoker Tobacco Type: Amount or Packs/day: How Many Years: Alcohol Use: No Frequency: Quant:
--- NOTE | 2020-02-25 14:01 | HPC ---
[facility] [address] [address] PAIN MANAGEMENT CONSULTATION Name: MATEUS CHRISTINE Room #: REG [facility].#: [id number] Admission: 02/20/20 Attend Phys: Aubrie Sheikh Discharge: Date of : 48 Report #: [id number] THIS REPORT FOR: cc: King Fisher MD, Christopher B. MD Hocker, Amanda CNS ~ CC: Aubrie Blair MD DATE OF SERVICE: 02/20/2020 CHIEF COMPLAINT: Trigeminal neuralgia. HISTORY OF PRESENT ILLNESS: As you know, this is a very pleasant 69-year-old female who returns to the pain clinic today for refill of her medications. She does report to us that her at the end of December after a long bout of illness. We have been aware of this. She states that her pain has been elevated since that time on her right side of her face due to crying. She knows that he is in a better place because he did suffer significantly the last year. She has been enjoying being with her family recently, but that has brought back several memories which has increased her pain as well. Today, she is reporting her pain as a 6/10 on the right side of her face and her nose, also under her eyes following the trigeminal nerves. It is a burning shocking pain, wearing a mask is not helpful as well as cold and bright sunlight. She feels that the crying has also increased it, but she feels the methadone has been very beneficial in usually controlling her pain. Today, it has been slightly elevated for the reasons stated above. She denies any problems with constipation or daytime somnolence as a result of her medicine. ALLERGIES: FLAGYL. CURRENT LIST OF MEDICATIONS: Methadone 20 mg t.i.d., losartan, omeprazole, Lasix, Excedrin caplets, Synthroid, multivitamin, Caltrate, Estrace, Toprol. PQRS: 1. She has arthritic changes in her neck. Denies rheumatoid arthritis. 2. Height is 5 feet 1 inch, weight is 140, BMI is 26. Vital signs 148/79, pulse is 67, respirations 18, oxygen sat is 98, pain score is 6/10. 3. Fall risk. Denies dizziness, does not need help walking or standing, has fallen 3 weeks ago and hurt her ankle, did not seek medical attention. She is not on any blood thinners, but does take medicine for hypertension. Her opioid therapy is greater than 6 weeks; therefore, an opioid signed contract is on the chart. Risk assessment is low. Functional assessment is 20/70. 4. Recreational drug use, she denies. She is a former smoker and does not drink alcohol. [address] [address] PAIN MANAGEMENT CONSULTATION Name: MATEUS CHRISTINE Ezekiel Room #: REG CL Dorcas#: [id number] Admission: 02/20/20 Attend Phys: Aubrie Sheikh Discharge: Date of : 48 Report #: [id number] According to the prescription monitoring system, she is due to fill her medications in about 2 weeks, filling them in a timely fashion. Her morphine milliequivalent is high at 180, though she has been stable on this dose for quite some time. There is a recent drug screen on the chart. We will collect a new one at her next visit. PHYSICAL EXAMINATION: GENERAL: This is a well-developed, well-nourished, well-hydrated 69-year-old slightly depressed, crying through some of our appointment today, rating her pain score at 6/10. HEENT: Normocephalic, atraumatic. Extraocular eye muscles are intact. She is wearing a mask today. She does have tenderness on the right side of her face, radiates into her jawline with no allodynia present. She is tender to the touch and slightly swollen under her eyes. MUSCULOSKELETAL: Lower extremity strength judged to be 5/5 in all major muscle groups. She does have a history of scoliosis, slight ecchymosis noted in her right lower extremity near her ankle and lower calf due to a recent fall. It is slightly edematous as well today. IMPRESSION: 1. Trigeminal neuralgia. 2. Low back pain related to her scoliosis. 3. Management of high risk medications under terms of written opioid agreement. We reviewed the fact that opiate medications are being used to provide analgesia adequate to support activities of daily living, not attempting to achieve a specific pain score on the 0-10 Visual Analog Scale. The current opiate medications are providing sufficient analgesia to allow the patient to participate in activities of daily living. The patient is not exhibiting any aberrant behavior suggestive of drug diversion. The patient is not having any adverse reactions to medications. The patient is not suffering from daytime somnolence or mental acuity changes. The patient is managing opiate-induced constipation with appropriate igws-fke-ieebupu agents and dietary considerations. The patient was counseled on concern for caution with operating a motor vehicle while using opiate medications. PLAN: 1. We discussed treatment options with the patient today. The patient finds her medication has been beneficial. She is having some increased pain due to more crying episodes since the of her . This does flare her trigeminal neuralgia, though she is not requesting any medications. Today, we will refill her methadone 10 mg, #180, for today and 4-week supply. The patient will fill in about 2 weeks. She denies constipation or daytime somnolence. 2. The patient is seen in collaboration today with Dr. Darren Oquendo who [address] [address] PAIN MANAGEMENT CONSULTATION Name: MATEUS CHRISTINE Ezekiel Room #: REG [facility] Dorcas#: [id number] Admission: 02/20/20 Attend Phys: Aubrie Sheikh Discharge: Date of : 48 Report #: [id number] is covering for Dr. Jose Carlos Blair today. At the next visit, we will check a random drug screen on this patient. <ELECTRONICALLY SIGNED> By: Aubrie Sheikh 02/25/20 1401 [id number] [id number] Aubrie Sheikh /nt
== END ==
LOC: PAIN 06:44
PROVIDERS: ATTEND Clinical Nurse Specialist Adult Health
DX: G50.0 Trigeminal neuralgia (principal); M54.5 Low back pain; F11.20 Opioid dependence, uncomplicated; Z79.899 Other long term (current) drug therapy

== ENCOUNTER → 2020-04-22 | Outpatient (CLI) | payer OTHER ==
[~2020-04-22] VITALS: Ht 154.9 cm; Wt 63.0 kg
[~2020-04-22] MED LIST changes: +NORVASC5 M1 PO
--- NOTE | ~2020-04-22 | HPC ---
[facility] [place] [address] PAIN MANAGEMENT CONSULTATION Name: MATEUS CHRISTINE Room #: REG [facility] Dorcas#: [id number] Admission: 04/22/20 Attend Phys: Aubrie Sheikh Discharge: Date of : 49 Report #: [id number] THIS REPORT FOR: cc: King Fisher MD, Christopher B. MD Hocker, Amanda CNS ~ CC: Aubrie Blair MD DATE OF SERVICE: 04/22/2020 CHIEF COMPLAINT: Trigeminal neuralgia. HISTORY OF PRESENT ILLNESS: As you know, this is a 69-year-old female who is depressed today, returning here with her daughter for refill of her medications. Her had recently at the end of December and since that time, the patient has been having several health issues herself. She had been not caring for herself where she had been busy caring for him. He had been in and out of the hospital several times for greater than 2 years and her health has been declining, though she had not been taking care of herself. So today, she presents in the clinic with her daughter for refill of medications, but also to discuss that she has recently had some kidney issues that she is trying to have resolved. She did had uncontrolled hypertension that is slowly getting resolved. She continues to have panic attacks and anxiety since his . She is living alone in her house currently. The family members come and see her on a daily basis. She is here hopefully to see Dr. Jose Carlos Blair today to discuss some of these health issues as well as her trigeminal neuralgia. She also reports that she has fallen 4 times since December. The patient reports her pain score is a 2-3 currently, but can be as high as at 10 on the right side of her face that radiates from her nose, behind her eye and ear when she is crying. She states that the wind loud noise, bright son as well as wearing a mask for COVID has been increasing her pain, dark environment is usually beneficial as well as her methadone. ALLERGIES: FLAGYL. CURRENT LIST OF MEDICATIONS: Atorvastatin 5 mg, methadone 20 mg t.i.d., losartan, Prilosec, Lasix, levothyroxine, multivitamin, Caltrate, Estrace and Toprol. PQRS: 1. History of arthritic changes in her neck. Denies any rheumatoid arthritis. 2. Height is 5 feet 1 inch, weight is 139, BMI is 26. 3. Vital signs; blood pressure 116/73, pulse is 66, respirations 14, oxygen sat [address] [address] PAIN MANAGEMENT CONSULTATION Name: MATEUS CHRISTINE Room #: REG [facility].#: [id number] Admission: 04/22/20 Attend Phys: Aubrie Sheikh Discharge: Date of : 48 Report #: [id number] is 99%. 4. Pain score is 2-3. 5. She is at fall risk. She has fallen multiple times in the past few weeks. She denies dizziness and is not using a cane or walker presently, but does have those at home that is using at times. She is not on any blood thinners and does take medicine for hypertension. 6. Opioid therapy is greater than 6 weeks; therefore, an opioid signed contract is on the chart. Risk assessment is low. Functional assessment is 20/70. 7. Recreational drug use, she denies. She is a former smoker and does not drink alcohol. According to the prescription monitoring system, the patient is due to fill her medications. She is filling them in a timely fashion and is due to fill those early next week. PHYSICAL EXAMINATION: GENERAL: This is a well-developed, well-nourished, very depressed 69-year-old female who is crying throughout some of our appointment today, rating her pain score at 2-3. HEENT: Normocephalic and atraumatic. Extraocular eye muscles are intact. She is wearing a mask. She has tenderness on the right side of her face with slight edema noted on her right cheek bone that radiates into her nose following the trigeminal nerves. No allodynia is present. MUSCULOSKELETAL: Lower extremity strength judged to be symmetrical, but slightly decreased on the left lower extremities. She does have a history of scoliosis. She has an antalgic gait. IMPRESSION: 1. Trigeminal neuralgia. 2. Low back pain related to her scoliosis. 3. Depression. 4. Management of high risk medications under terms of written opioid agreement. We reviewed the fact that opiate medications are being used to provide analgesia adequate to support activities of daily living, not attempting to achieve a specific pain score on the 0-10 Visual Analog Scale. The current opiate medications are providing sufficient analgesia to allow the patient to participate in activities of daily living. The patient is not exhibiting any aberrant behavior suggestive of drug diversion. The patient is not having any adverse reactions to medications. The patient is not suffering from daytime somnolence or mental acuity changes. The patient is managing opiate-induced constipation with appropriate xzji-vey-ndzgvhl agents and dietary considerations. The patient was counseled on concern for caution with operating a motor vehicle while using opiate medications. A physical exam was performed and the patient's functional status was evaluated. [address] [address] PAIN MANAGEMENT CONSULTATION Name: MATEUS CHRISTINE Room #: REG [facility]#: [id number] Admission: 04/22/20 Attend Phys: Aubrie Sheikh Discharge: Date of : 48 Report #: [id number] All patients with back pain were advised against the bed rest greater than 4 days and were advised to return to normal activities. Pain score assessment was noted and the treatment plan was reviewed with the patient. All current medications, both prescribed and OTC were reviewed and reconciled on the electronic medical record. Tobacco screening was accomplished and smoking cessation was advised when indicated. BMI was noted and diet/exercise modification was recommended for all patients following outside normal parameters. I reviewed with the patient today their responsibilities to safeguard prescription medications, reviewed their responsibility to utilize medications only as prescribed by the physician. They are to seek and receive pain medications only from 1 physician group ( [facility]). They are to use 1 pharmacy and keep the clinic informed if they change pharmacies. Their responsibilities include making followup visits in a timely fashion and to avoid abrupt discontinuation of medication usage. Their responsibilities further include bringing their medications (bottles from the pharmacy with residual pills) to the visit for possible confirmation of pill counts and the patient understands it is their responsibility to submit to random drug screens to ensure both that the medications prescribed are present, and that no other controlled substances are present. All prescriptions provided today were generated electronically. PLAN: 1. We discussed treatment options with the patient today. The patient lost her greater than 3 months ago, is still very depressed dealing with him, his lose and her role as caregiver. She has been speaking with Dr. Fisher, he has discussed possible into anxiety medicine or anti-depression medicines, but she was awaiting tests for kidney function before she decided on any medications. I did briefly talk about Paxil, which helps with anti-depression as well as some anxiety or possibly Cymbalta that will help with some of her neuropathic pain as well as depression, but we will have Dr. Fisher decide on these medications. I have encouraged the patient to try and stay away from benzodiazepine since she is on large doses of opioid medications in her methadone therapy. 2. We did examine the patient today. She has been falling more. She does have an antalgic gait and her left leg is shorter due to her scoliosis. She is wondering about an orthotic to be placed in her shoe. I have encouraged her to attend physical therapy and try to work on gait training as well as possible shoe inserts that may help with some of her discrepancy in her lower extremity length. The patient will stop by there today prior to leaving to make an appointment. 3. I have also offered her a [facility] to seek grief counselors or other therapy that she may need to help her get through this time. The patient and family are agreeable with this. 4. Scripts will be sent for her methadone 10 mg, #180. The patient takes 2-3 times a day. These will be sent for today and 4-week release by Dr. Darren Oquendo who is covering for Dr. Blair today. 5. The patient will see Dr. Blair at the end of this month. At that time, we [address] [address] PAIN MANAGEMENT CONSULTATION Name: EMMETTMATEUS Ezekiel Room #: REG [facility]#: [id number] Admission: 04/22/20 Attend Phys: Aubrie Sheikh Discharge: Date of : 49 Report #: [id number] will readdress all of her medications and see if we need to make any changes at that time. The patient and family verbalize understanding. The patient has seen in collaboration with Jere Carbajal on [id number]. By: [id number] Aubrie Sheikh /ishan
[2020-04-22 13:14] VITALS: BP 116/73
--- NOTE | 2020-04-22 13:42 | NUR ---
Pain Clinic Assessment: 1. History of Osteoarthritis: NECK History of Rheumatoid Arthritis: DENIES 2. Height: 5 ft. 1 in. 154.9 cm. Weight: 139.0 lb. oz. 63.050 kg. Patient's BMI: 26.3 3. Vital Signs: BP: 116/73 Pulse: 66 Resp: 14 Temp: 02 Sat: 97 ECG Mon: 4. Pain Intensity: 2-3; 10 WHEN CRYING 5. Fall Risk: Dizziness: N Needs help standing or walking: N Fallen in the last 3 months: Y Fall risk comments: FELL ONE WEEK AGO- GOING TO PCP TODAY 6. Patient on Blood Thinner: None 7. History of Hypertension: Y 8. Opioid Therapy greater than 6 weeks: Y Opiate Contract Signed: 10/12/17 9. Risk Assessment Tool Provided: LOW RISK 0/3 10. Functional Assessment Tool: 11. Recreational Drug Use: Never Drug Type: Tobacco Use: Former Smoker Tobacco Type: Amount or Packs/day: How Many Years: Alcohol Use: No Frequency: Quant:
== END ==
LOC: PAIN 07:00
PROVIDERS: ATTEND Clinical Nurse Specialist Adult Health
DX: G50.0 Trigeminal neuralgia (principal); M54.5 Low back pain; F32.9 Major depressive disorder, single episode, unspecified; F11.20 Opioid dependence, uncomplicated; Z88.8 Allergy status to other drugs, medicaments and biological substances; Z79.899 Other long term (current) drug therapy; M41.9 Scoliosis, unspecified

== ENCOUNTER → 2020-05-18 | Outpatient (CLI) | payer OTHER ==
[~2020-05-18] VITALS: Ht 165.1 cm; Wt 62.1 kg
[~2020-05-18] MED LIST changes: +CELEXA 20 MG TA20 MG PO; -LEVOTHYROXIN0.075 MG PO; +SYNTHROID125 MC1 PO
--- NOTE | ~2020-05-18 | HPC ---
[facility] [address] [place] [address] PAIN MANAGEMENT CONSULTATION Name: MATEUS CHRISTINE Room #: REG [facility].#: [id number] Admission: 05/18/20 Attend Phys: Jose Carlos Blair MD Discharge: Date of : 49 Report #: [id number] THIS REPORT FOR: cc: King Fisher MD,Jose Carlos Mantilla MD, MD ~ CC: Luan Blair DATE OF SERVICE: 05/18/2020 Followup visit for trigeminal neuralgia. The patient returns to pain clinic today with her daughter. I spent 25 minutes in counseling. She is grieving her terribly. Her , Booker was one of my patients and he had severe chronic illness, end-stage renal disease and in late December. She has been living alone in her home, supported by her son and daughter who live in [place]. I believe she is grieving normally, but she borders on complicated grief. She can barely get going through the day. She has periods of severe anxiety. The house is too big for her daughter is trying to move her closer and there is hope that she may be into assisted living place in [place] near to her daughter who comes to her with each apartment. Her pain is under control with current regimen of medicines. We have been using these medicines now for many years and she has been faithful and her use of them. Methadone 10 mg taken 2 tablets t.i.d. is well tolerated, controls her pain and has been effective in keeping her functioning for many, many years. I will continue that medication for her under terms of our written agreement. I reviewed the prescription drug monitoring program information and there are no unexpected entries. Her last prescriptions were written by Dr. Oquendo and she has a prescription available for release on 05/22/2020. I told her I did see her back in a month or two. We will go ahead and release her June prescription for her one time is due. From a physical standpoint, I think she is okay. I talked about finding something to do each day like making cookies are some small tasks, reaching out to others if she can. We talked about sleep and she is not sleeping well, mostly due to her inability to fall asleep due to grief. She was started on Celexa by Dr. Fisher, but has not been on it long enough to know whether it is going to help. She has periods of anxiety during the day and panic attacks, but has no benzodiazepine or anxiolytic medication. We will see what the Celexa does, but she may need a more potent anxiolytic. We will try to avoid overmedicating her on her high dose of methadone. [address] [address] PAIN MANAGEMENT CONSULTATION Name: MATEUS CHRISTINE Ezekiel Room #: REG [facility]#: [id number] Admission: 05/18/20 Attend Phys: Jose Carlos Blair MD Discharge: Date of : 49 Report #: [id number] All medications otherwise are reviewed and reconciled and are stable. PQRS: Positive for arthritis of the neck. Cervical spondylosis causes fairly significant amount of pain. She continues to lose weight. PHYSICAL EXAMINATION: VITAL SIGNS: Her BMI at last visit was 26, it is 22.8 today that is just over the course of the last month. Blood pressure 119/73, heart rate 61, respirations 20, O2 sat 95. She is wearing a mask due to COVID restrictions. GENERAL: She has no shortness of breath. LUNGS: Clear. CARDIAC: Rhythm is regular. ABDOMEN: Soft. SOCIAL HISTORY: She is a fall risk and is using a walker. She is on an opioid agreement. Denies recreational drug use. Does not smoke or drink alcohol. IMPRESSION: 1. Chronic facial pain with trigeminal neuralgia. 2. Cervicalgia and low back pain related to spondylosis and scoliosis. 3. Situational depression bordering on complicated grief. 4. Management of high risk medications under terms of written opioid agreement. Medications were renewed for her at last visit. We will continue to provide her medications to avoid any withdrawal circumstances. I have supported her desire to move closer to her daughter, provided options through [facility] if it is functioning for grief counseling. Followup visit planned in 1-2 months. By: [id number] Jose Carlos Blair MD /nt
[2020-05-18 14:59] VITALS: BP 119/73
--- NOTE | 2020-05-18 15:10 | NUR ---
Pain Clinic Assessment: 1. History of Osteoarthritis: NECK History of Rheumatoid Arthritis: DENIES 2. Height: 5 ft. 5 in. 165.1 cm. Weight: 136.8 lb. oz. 62.052 kg. Patient's BMI: 22.8 3. Vital Signs: BP: 119/73 Pulse: 61 Resp: 20 Temp: 02 Sat: 95 ECG Mon: 4. Pain Intensity: 4 5. Fall Risk: Dizziness: Y Needs help standing or walking: Y Fallen in the last 3 months: Y Fall risk comments: has fallen, using walker 6. Patient on Blood Thinner: None 7. History of Hypertension: Y 8. Opioid Therapy greater than 6 weeks: Y Opiate Contract Signed: 10/12/17 9. Risk Assessment Tool Provided: LOW RISK 0/3 10. Functional Assessment Tool: 11. Recreational Drug Use: Never Drug Type: Tobacco Use: Former Smoker Tobacco Type: Amount or Packs/day: How Many Years: Alcohol Use: No Frequency: Quant:
== END ==
LOC: PAIN 07:09
PROVIDERS: ATTEND Anesthesiology Pain Medicine
DX: R51 Headache (principal); M47.816 Spondylosis without myelopathy or radiculopathy, lumbar region; M41.86 Other forms of scoliosis, lumbar region; F41.8 Other specified anxiety disorders; F11.20 Opioid dependence, uncomplicated

== ENCOUNTER → 2020-07-06 | Outpatient (CLI) | payer OTHER ==
[~2020-07-06] VITALS: Ht 162.6 cm; Wt 61.6 kg
[~2020-07-06] MED LIST changes: +KLOR-CON M2020 MEQ PO; +SPIRONOLACTONE25 MG PO
[2020-07-06 10:17] VITALS: BP 140/53
--- NOTE | 2020-07-07 13:11 | HPC ---
[facility] [address] [place] [address] PAIN MANAGEMENT CONSULTATION Name: MATEUS CHRISTINE [facility] [id number] Admission: 07/06/20 Attend Phys: Aubrie Sheikh Discharge: Date of : 48 Report #: [id number] THIS REPORT FOR: cc: King Fisher MD, Christopher B. MD Hocker, Amanda CNS ~ CC: Aubrie Blair MD DATE OF SERVICE: 07/06/2020 CHIEF COMPLAINT: Trigeminal neuralgia. HISTORY OF PRESENT ILLNESS: This is a very pleasant 69-year-old female who was here with her daughter today for a refill of her medications. The patient is more upbeat today. She states that she is feeling slightly better. She does continue to grieve for her , but feels like each day processing and overcoming her grief. She has made the decision to sell her house and has been slowly selling things. She is planning to move into a townhouse, closer to her daughter and son and she is looking forward to this transition. The patient continues to complain of ongoing facial pain on her right side of her cheek, behind her eye and into her nose. She reports it as a stabbing, shocking feeling of 5-6/10 today. She feels the wind has been increasing her pain recently as well as the colder weather, but her medication is beneficial and she denies constipation. She has been recently diagnosed with congestive heart failure and has been taking Lasix though she does have edema in her lower extremities today. She has an appointment with her bacteriologist medical on Monday and she believes that they will be adjusting her furosemide dose. She has been also taking spironolactone and potassium. She also reports that her kidney function still remains slightly elevated, but has decreased since previous visits. All of her ultrasounds were negative. ALLERGIES: FLAGYL. CURRENT LIST OF MEDICATIONS: Methadone 20 mg t.i.d., Celexa, amlodipine, losartan, omeprazole, Lasix, levothyroxine, multivitamin, calcium, Estrace, metoprolol, spironolactone, potassium. PQRS: 1. She is positive for osteoarthritis in her neck. Denies rheumatoid arthritis. 2. Height is 5 feet 4 inches, weight is 135, BMI is 23. Vital signs 140/53, pulse is 56, respirations 16, oxygen sat is 99. [address] [address] PAIN MANAGEMENT CONSULTATION Name: MATEUS CHRISTINE Room #: REG [facility].#: [id number] Admission: 07/06/20 Attend Phys: Aubrie Sheikh Discharge: Date of : 48 Report #: [id number] 3. Pain score is 5-6. 4. Denies dizziness. Does not need help walking or standing but does use a walker. Has not fallen in the last 3 months. The patient is not on any blood thinners but does take medicine for hypertension. Her opioid therapy is greater than 6 weeks; therefore, an opioid signed contract is on the chart. Risk assessment is low. Functional assessment is 25/70. 5. Recreational drug use, she denies. She is a former smoker and does not drink alcohol. According to the prescription monitoring system, the patient is filling appropriately. She is due to fill her medications in a timely fashion, filling her meds appropriately. Her morphine milliequivalent is quite high at 132. There is a drug screen on the chart that is appropriate for her medications. PHYSICAL EXAMINATION: GENERAL: This is an alert and orientated, 69-year-old female, who appears her stated age, placing her current pain score today at 5-6. HEENT: Normocephalic, atraumatic. She is having tenderness on the right side of her face along her cheek bone that radiates into her nasal area, following the trigeminal nerves. No allodynia noted. MUSCULOSKELETAL: Her lower extremity strength is symmetrical, but slightly decreased. She does have scoliosis. She has an antalgic gait and using a walker at all times. 2+ edema bilaterally in her lower extremities. IMPRESSION: 1. Trigeminal neuralgia. 2. Lower back pain related to her scoliosis. 3. Depression. 4. Congestive heart failure with peripheral edema. 5. Management of high risk medications under written opioid agreement. We reviewed the fact that opiate medications are being used to provide analgesia adequate to support activities of daily living, not attempting to achieve a specific pain score on the 0-10 Visual Analog Scale. The current opiate medications are providing sufficient analgesia to allow the patient to participate in activities of daily living. The patient is not exhibiting any aberrant behavior suggestive of drug diversion. The patient is not having any adverse reactions to medications. The patient is not suffering from daytime somnolence or mental acuity changes. The patient is managing opiate-induced constipation with appropriate aqcq-sgt-pmdjjfk agents and dietary considerations. The patient was counseled on concern for caution with operating a motor vehicle while using opiate medications. PLAN: 1. We discussed treatment options with the patient today. The patient has made decisions regarding her house and feels that this has made her accept her [address] [address] PAIN MANAGEMENT CONSULTATION Name: MATEUS CHRISTINE Room #: REG [facility]#: [id number] Admission: 07/06/20 Attend Phys: Aubrie Sheikh Discharge: Date of : 48 Report #: [id number] 's and has still continued to grieve but not as significantly as she was a few months prior. The patient feels like she is finally getting her own health under control, which is making her outlook improved. She does continue on Celexa and has seen a grief counselor one time, but more upbeat today. 2. We did discuss her ongoing physical therapy that she is doing at home and I encouraged her to continue. She still does use a walker at all times but has not fallen. 3. We will continue her on her current methadone therapy, 20 mg t.i.d. Quantity 180 will be sent electronically by Dr. Blair to her pharmacy to fill in 1 week and again in 5 weeks. 4. The patient encouraged to make an appointment at the end of August for medication refills. The patient is seen today in collaboration with Dr. Jose Carlos Blair. <ELECTRONICALLY SIGNED> By: Aubrie Sheikh 07/07/20 1311 [id number] Aubrie Sheikh /nt
== END ==
LOC: PAIN 06:54
PROVIDERS: ATTEND Clinical Nurse Specialist Adult Health
DX: G50.0 Trigeminal neuralgia (principal); F32.9 Major depressive disorder, single episode, unspecified; I50.9 Heart failure, unspecified; M54.5 Low back pain; F11.20 Opioid dependence, uncomplicated; R60.0 Localized edema; Z88.8 Allergy status to other drugs, medicaments and biological substances; Z79.899 Other long term (current) drug therapy

== ENCOUNTER → 2020-09-03 | Outpatient (CLI) | payer OTHER ==
[~2020-09-03] VITALS: Ht 154.9 cm; Wt 59.5 kg
[~2020-09-03] MED LIST changes: +TOPROL XL25 MG PO
[2020-09-03 12:51] VITALS: BP 136/79
--- NOTE | 2020-09-03 13:17 | NUR ---
Pain Clinic Assessment: 1. History of Osteoarthritis: NECK History of Rheumatoid Arthritis: DENIES 2. Height: 5 ft. 1 in. 154.9 cm. Weight: 131.2 lb. oz. 59.512 kg. Patient's BMI: 24.8 3. Vital Signs: BP: 136/79 Pulse: 66 Resp: 16 Temp: 02 Sat: 98 ECG Mon: 4. Pain Intensity: 4 5. Fall Risk: Dizziness: N Needs help standing or walking: Y Fallen in the last 3 months: N Fall risk comments: has fallen, using walker 6. Patient on Blood Thinner: None 7. History of Hypertension: Y 8. Opioid Therapy greater than 6 weeks: Y Opiate Contract Signed: 10/12/17 9. Risk Assessment Tool Provided: LOW RISK 0/3 10. Functional Assessment Tool: 11. Recreational Drug Use: Never Drug Type: Tobacco Use: Former Smoker Tobacco Type: Amount or Packs/day: How Many Years: Alcohol Use: No Frequency: Quant:
--- NOTE | 2020-09-04 07:34 | HPC ---
[facility] [address] [address] PAIN MANAGEMENT CONSULTATION Name: MATEUS CHRISTINE Room #: REG [facility]ERYanethYaneth#: [id number] Admission: 09/03/20 Attend Phys: Aubrie Sheikh Discharge: Date of : 48 Report #: [id number] THIS REPORT FOR: cc: King Fisher MD, Christopher B. MD Hocker, Amanda CNS ~ DATE OF SERVICE: 09/03/2020 CHIEF COMPLAINT: Trigeminal neuralgia. HISTORY OF PRESENT ILLNESS: This is a very pleasant 69-year-old female who returns to the pain clinic today to discuss her medications. She believes that her methadone therapy is very beneficial in controlling her trigeminal neuralgia that she suffers within the right side of her face. Her pain radiates from the side of her nose behind her right eye and into her temporal area, occasionally radiating into her ear. It is worse with cold and bright sun or the wind, but overall, she believes that the medication as well as a dark environment with distraction has been beneficial. She denies significant constipation as long as she keeps taking suac-jlh-nuznnji laxatives on an as needed basis. Overall, the patient states she is doing quite well since her last visit. She did recently see her primary care doctor who is going to increase her antidepressant. She reports that the holidays have been quite difficult since this is the first [place] without her . Her family has been very beneficial in helping her get through this trying time. She continues to work on trying to move into a smaller house and has been downsizing. ALLERGIES: FLAGYL. CURRENT LIST OF MEDICATIONS: Methadone 20 mg t.i.d., potassium, spironolactone p.r.n., Celexa 20 mg, amlodipine, Cozaar, Prilosec, Lasix 20 mg b.i.d., levothyroxine, multivitamin, calcium, Estrace, metoprolol 25 mg. PQRS: 1. She has osteoarthritis in her neck. Denies any rheumatoid arthritis. 2. Height is 5 feet 1 inch, weight is 131, BMI is 24. 3. Vital signs, 136/79, pulse is 66, respirations 16, oxygen sat is 98%. 4. Pain score is 4/10. 5. Denies dizziness. Does use a walker for assistance with ambulation. Has not fallen in the last 3 months. 6. The patient is not on any blood thinners, but does take medicine for hypertension. Her opioid therapy is greater than 6 weeks; therefore, an opioid signed contract is on the chart. Risk assessment is low. Functional assessment is 25/70. 7. Recreational drug use, she denies. She is a former smoker [place] [address] PAIN MANAGEMENT CONSULTATION Name: MATEUS CHRISTINE Ezekiel Room #: REG CLAracely Toscano#: [id number] Admission: 09/03/20 Attend Phys: Aubrie Sheikh Discharge: Date of : 48 Report #: [id number] According to the prescription monitoring system, she is filling appropriately for her medications in a timely fashion. She has a high morphine mEq, but is very stable on this current dose and has been for quite some time. There is a drug screen on the chart that is appropriate as well. PHYSICAL EXAMINATION: GENERAL: This is alert and orientated 69-year-old female who appears her stated age, placing her current pain score today at 4/10. She is a good historian. HEENT: Normocephalic, atraumatic. Extraocular eye muscles are intact. She is wearing a mask. She has some tenderness on the right side of her face along her cheek bone that radiates into her nasal area following the trigeminal nerves. No allodynia noted. MUSCULOSKELETAL: She has scoliosis with no kyphosis. She has an antalgic gait, using a walker at all times. No appreciable edema noted in her bilateral extremities today. Her lower extremity strength is slightly deconditioned. IMPRESSION: 1. Trigeminal neuralgia. 2. Low back pain related to her scoliosis. 3. Depression. 4. Congestive heart failure, on diuretic therapy. 5. Management of high risk medications under terms of written opioid agreement. We reviewed the fact that opiate medications are being used to provide analgesia adequate to support activities of daily living, not attempting to achieve a specific pain score on the 0-10 Visual Analog Scale. The current opiate medications are providing sufficient analgesia to allow the patient to participate in activities of daily living. The patient is not exhibiting any aberrant behavior suggestive of drug diversion. The patient is not having any adverse reactions to medications. The patient is not suffering from daytime somnolence or mental acuity changes. The patient is managing opiate-induced constipation with appropriate ijil-klr-izoetei agents and dietary considerations. The patient was counseled on concern for caution with operating a motor vehicle while using opiate medications. A physical exam was performed and the patient's functional status was evaluated. All patients with back pain were advised against the bed rest greater than 4 days and were advised to return to normal activities. Pain score assessment was noted and the treatment plan was reviewed with the patient. All current medications, both prescribed and OTC were reviewed and reconciled on the electronic medical record. Tobacco screening was accomplished and smoking cessation was advised when indicated. BMI was noted and diet/exercise modification was recommended for all patients following outside normal parameters. [facility] [address] [place] [address] PAIN MANAGEMENT CONSULTATION Name: MATEUS CHRISTINE Ezekiel Room #: REG [facility] Dorcas#: [id number] Admission: 09/03/20 Attend Phys: Aubrie KELLY Sheikh Discharge: Date of : 48 Report #: [id number] I reviewed with the patient today their responsibilities to safeguard prescription medications, reviewed their responsibility to utilize medications only as prescribed by the physician. They are to seek and receive pain medications only from 1 physician group ( [facility]). They are to use 1 pharmacy and keep the clinic informed if they change pharmacies. Their responsibilities include making followup visits in a timely fashion and to avoid abrupt discontinuation of medication usage. Their responsibilities further include bringing their medications (bottles from the pharmacy with residual pills) to the visit for possible confirmation of pill counts and the patient understands it is their responsibility to submit to random drug screens to ensure both that the medications prescribed are present, and that no other controlled substances are present. All prescriptions provided today were generated electronically. PLAN: 1. We discussed treatment options with the patient today. She believes the methadone continues to be very beneficial. We will have Dr. Jose Carlos Blair send this electronically for methadone 20 mg t.i.d., #180, to be released today and again on 10/01/2020. 2. We did discuss physical therapy. The patient has been doing home health care. Thus she believes she needs more strengthening. She did recently discuss this with Dr. Fisher and is going to start utilizing outpatient rehab to try and gain more strength in her lower extremities. 3. She continues to work on moving to a smaller housing situation. Family is working with her to downsize. This has been stressful for the patient, but she is thankful for her family's help and is looking forward to socialization in a new environment, which we did discuss may be beneficial with some of her depression as well. 4. The patient will return in 2 months. She is seen today in collaboration with Dr. Blair. <ELECTRONICALLY SIGNED> By: Aubrie Sheikh 09/04/20 0734 [id number] Aubrie Sheikh /nt
== END ==
LOC: PAIN 06:56
PROVIDERS: ATTEND Clinical Nurse Specialist Adult Health
DX: G50.0 Trigeminal neuralgia (principal); M41.86 Other forms of scoliosis, lumbar region; I50.9 Heart failure, unspecified; F11.20 Opioid dependence, uncomplicated; Z88.8 Allergy status to other drugs, medicaments and biological substances; Z79.899 Other long term (current) drug therapy

== ENCOUNTER → 2020-11-02 | Outpatient (CLI) | payer OTHER ==
[~2020-11-02] VITALS: Ht 154.9 cm; Wt 63.5 kg
[~2020-11-02] MED LIST changes: +EFFEXOR XR37.5 MG PO; +METOPROLOL TART25 MG PO
[2020-11-02 10:40] VITALS: BP 160/76
--- NOTE | 2020-11-02 10:48 | NUR ---
Pain Clinic Assessment: 1. History of Osteoarthritis: NECK History of Rheumatoid Arthritis: DENIES 2. Height: 5 ft. 1 in. 154.9 cm. Weight: 140.0 lb. oz. 63.504 kg. Patient's BMI: 26.5 3. Vital Signs: BP: 160/76 Pulse: 59 Resp: 18 Temp: 02 Sat: 98 ECG Mon: 4. Pain Intensity: 4 5. Fall Risk: Dizziness: N Needs help standing or walking: Y Fallen in the last 3 months: N Fall risk comments: has fallen, using walker 6. Patient on Blood Thinner: None 7. History of Hypertension: Y 8. Opioid Therapy greater than 6 weeks: Y Opiate Contract Signed: 10/12/17 9. Risk Assessment Tool Provided: LOW RISK 0/3 10. Functional Assessment Tool: 11. Recreational Drug Use: Never Drug Type: Tobacco Use: Former Smoker Tobacco Type: Amount or Packs/day: How Many Years: Alcohol Use: No Frequency: Quant:
--- NOTE | 2020-11-03 08:36 | HPC ---
[facility] [address] [place] [address] PAIN MANAGEMENT CONSULTATION Name: MATEUS CHRISTINE Ezekiel Room #: REG [facility]TSYanethYaneth#: [id number] Admission: 11/02/20 Attend Phys: Aubrie Sheikh Discharge: Date of : 48 Report #: [id number] THIS REPORT FOR: cc: King Fisher MD, Christopher B. MD Hocker, Amanda CNS ~ DATE OF SERVICE: 11/02/2020 CHIEF COMPLAINT: Trigeminal neuralgia. HISTORY OF PRESENT ILLNESS: This is a pleasant 69-year-old female who returns to the clinic today with her daughter. They are here for medication renewals. The patient's daughter reports today that her mom had deteriorated since our last visit. She was having issues with walking. She was very unsteady. Previously, the patient had gone to physical therapy and her walking had improved, but the daughter was noticing a significant decline in her posture as well as her balance. She also was realizing she was not as alert as she had been in the past. She felt like she was more forgetful and she was continued to having ongoing depression since her last year. The daughter reports she took her to [facility] where they did perform an MRI. The patient was found to have normal pressure hydrocephalus. Dr. Heller put in LP shunt last week and within 24-36 hours per the daughter's report, her mother was much more alert cognitively and her balance and walk has continued to improve each day. The patient thought the pain in her head was related to her trigeminal neuralgia that does affect her on the right side of her face, which we do see her for. The patient is alert and orientated, answering all my questions today. She is rating her pain score of 4/10, stating she has most of her pain on the right side of her face behind her eye and into her forehead, sometimes behind her right ear. She is having a small amount of abdominal pain from her recent shunt surgery. Overall this week, the patient feels like she is doing quite well with her pain control and her mood since she has changed antidepressant medications. ALLERGIES: FLAGYL. CURRENT LIST OF MEDICATIONS: Venlafaxine 37.5 mg, metoprolol, methadone 20 mg t.i.d., potassium, Prilosec, Lasix, Synthroid, multivitamin, Caltrate 600 and Estrace. PQRS: 1. She has osteoarthritic changes in her neck. Denies any rheumatoid arthritis. 2. Height is 5 feet 1 inch, weight is 140, BMI is 26. 3. Vital signs 160/76, pulse is 59, respirations 18, oxygen sat is 98%. 4. Pain score is 4/10. [address] [address] PAIN MANAGEMENT CONSULTATION Name: MATEUS CHRISTINE Ezekiel Room #: REG CL Dorcas#: [id number] Admission: 11/02/20 Attend Phys: Aubrie Sheikh Discharge: Date of : 48 Report #: [id number] 5. Denies dizziness. Does use a walker for ambulation, has not fallen in the last 3 months. 6. The patient is not on any blood thinners, but does take medicine for hypertension. 7. Opioid therapy is greater than 6 weeks; therefore, an opioid signed contract is on the chart. Risk assessment is low. Functional assessment is 25/70. 8. Recreational drug use, she denies. She is a former smoker and does not drink alcohol. According to the prescription monitoring system, she is filling appropriately. She is due for her medications later this week. Her morphine milliequivalent is quite high and she is followed every 2 months in the clinic. We will check a random drug screen on her at her next visit. PHYSICAL EXAMINATION: GENERAL: This is alert and orientated 69-year-old who appears her stated age. She is very bright eyed and answering all my questions today. Rating her pain a 4/10. HEENT: Normocephalic, atraumatic. Extraocular eye muscles are intact. She is wearing a mask. She has tenderness along the right side of her face that radiates into her nasal area behind her right ear. She has a LP shunt located in the occipital portion of her right skull. MUSCULOSKELETAL: She has scoliosis without kyphosis. She has an antalgic gait, uses walker at all times. She is walking upright today. Lower extremity strength is symmetrical at 4/5 and deconditioned. IMPRESSION: 1. Trigeminal neuralgia. 2. Low back pain related to scoliosis. 3. Depression. 4. Normal pressure hydrocephalus with recent LP shunt. 5. Congestive heart failure. 6. Management of complicated medications under written opioid agreement. We reviewed the fact that opiate medications are being used to provide analgesia adequate to support activities of daily living, not attempting to achieve a specific pain score on the 0-10 Visual Analog Scale. The current opiate medications are providing sufficient analgesia to allow the patient to participate in activities of daily living. The patient is not exhibiting any aberrant behavior suggestive of drug diversion. The patient is not having any adverse reactions to medications. The patient is not suffering from daytime somnolence or mental acuity changes. The patient is managing opiate-induced constipation with appropriate bdzq-yzg-wfyzlxt agents and dietary considerations. The patient was counseled on concern for caution with operating a motor vehicle while using opiate medications. [facility] [address] [place] [address] PAIN MANAGEMENT CONSULTATION Name: MATEUS CHRISTINE Room #: REG [facility] Dorcas#: [id number] Admission: 11/02/20 Attend Phys: Aubrie Sheikh Discharge: Date of : 48 Report #: [id number] PLAN: 1. We discussed treatment options with the patient today. The patient was found to have normal pressure hydrocephalus, unsure of the cause. The patient had a shunt placed last week and has been doing much better cognitively as well as her mobility since she had the shunt placed. She has been living with her daughter and will start [facility] PT, which is an adult daycare setting next week with working on endurance and strengthening. The patient is hopeful that this will help her gain some of her strength back and she is hopeful to move into an apartment on her own once her house sells later in November. 2. Today, we will continue her methadone 20 mg 3 times a day, quantity 180. These scripts will be sent electronically by Dr. Jose Carlos Blair for today and again on 11/30. I encouraged the patient if she is able to decrease slightly on her methadone, it could be that the pressure in her head was causing increase in her trigeminal neuralgia issues and she may be able to get by with less medication. The patient may try to decrease in the next 2 months. 3. The patient will follow up in 2 months' time. At that appointment, we will collect a random drug screen from her since it had been greater than a year. Time spent with the patient in consultation, reviewing imaging, clinical notes and physician reports, physical examination in correlation of findings to determine possible treatments is 22 minutes. Time spent in preparation for appointment reviewing prescription monitoring system reports and review of previous records and proposed treatment options, reviewing current medications is 5 minutes. Time spent preparing and sending electronic prescriptions with collaborating physician, Dr. Jose Carlos Blair, and documentation of visit and plan of treatment is 9 minutes. Total time spent 36 minutes. <ELECTRONICALLY SIGNED> By: Aubrie Sheikh 11/03/20 0836 [id number] Aubrie Sheikh /nt
== END ==
LOC: PAIN 10-30 13:33
PROVIDERS: ATTEND Clinical Nurse Specialist Adult Health
DX: G50.0 Trigeminal neuralgia (principal); M41.56 Other secondary scoliosis, lumbar region; I50.9 Heart failure, unspecified; F32.9 Major depressive disorder, single episode, unspecified; Z79.891 Long term (current) use of opiate analgesic; Z79.899 Other long term (current) drug therapy

== ENCOUNTER → 2020-12-24 | Outpatient (CLI) | payer OTHER ==
[~2020-12-24] VITALS: Ht 154.9 cm; Wt 60.1 kg
[~2020-12-24] MED LIST changes: +FUROSEMIDE 40 M40 M1 PO
[2020-12-24 13:06] VITALS: BP 150/89
--- NOTE | 2020-12-24 13:12 | NUR ---
Pain Clinic Assessment: 1. History of Osteoarthritis: NECK History of Rheumatoid Arthritis: DENIES 2. Height: 5 ft. 1 in. 154.9 cm. Weight: 132.6 lb. oz. 60.147 kg. Patient's BMI: 25.1 3. Vital Signs: BP: 150/89 Pulse: 75 Resp: 16 Temp: 02 Sat: 99 ECG Mon: 4. Pain Intensity: 4 5. Fall Risk: Dizziness: N Needs help standing or walking: N Fallen in the last 3 months: Y Fall risk comments: has fallen, using walker 6. Patient on Blood Thinner: None 7. History of Hypertension: Y 8. Opioid Therapy greater than 6 weeks: Y Opiate Contract Signed: 10/12/17 9. Risk Assessment Tool Provided: LOW RISK 0/3 10. Functional Assessment Tool: 11. Recreational Drug Use: Never Drug Type: Tobacco Use: Former Smoker Tobacco Type: Amount or Packs/day: How Many Years: Alcohol Use: No Frequency: Quant:
== END ==
LOC: PAIN 08:07
PROVIDERS: ATTEND Clinical Nurse Specialist Adult Health
DX: G62.9 Polyneuropathy, unspecified (principal); M54.5 Low back pain; F32.9 Major depressive disorder, single episode, unspecified; I50.9 Heart failure, unspecified; F11.20 Opioid dependence, uncomplicated; Z88.8 Allergy status to other drugs, medicaments and biological substances; Z79.899 Other long term (current) drug therapy

== ENCOUNTER → 2021-02-11 | Outpatient (CLI) | payer OTHER ==
[~2021-02-11] VITALS: Ht 154.9 cm; Wt 60.7 kg
[2021-02-11 14:33] VITALS: BP 129/74
--- NOTE | 2021-02-11 15:10 | NUR ---
Pain Clinic Assessment: 1. History of Osteoarthritis: NECK History of Rheumatoid Arthritis: DENIES 2. Height: 5 ft. 1 in. 154.9 cm. Weight: 133.8 lb. oz. 60.691 kg. Patient's BMI: 25.3 3. Vital Signs: BP: 129/74 Pulse: 58 Resp: 14 Temp: 02 Sat: 98 ECG Mon: 4. Pain Intensity: 4 5. Fall Risk: Dizziness: N Needs help standing or walking: Y Fallen in the last 3 months: N Fall risk comments: has fallen, using walker 6. Patient on Blood Thinner: None 7. History of Hypertension: Y 8. Opioid Therapy greater than 6 weeks: Y Opiate Contract Signed: 10/12/17 9. Risk Assessment Tool Provided: LOW RISK 0/3 10. Functional Assessment Tool: 11. Recreational Drug Use: Never Drug Type: Tobacco Use: Former Smoker Tobacco Type: Amount or Packs/day: How Many Years: Alcohol Use: No Frequency: Quant:
== END ==
LOC: PAIN 11:02
PROVIDERS: ATTEND Anesthesiology Pain Medicine
DX: G89.4 Chronic pain syndrome (principal); G50.0 Trigeminal neuralgia; M41.86 Other forms of scoliosis, lumbar region; G91.8 Other hydrocephalus; I50.9 Heart failure, unspecified; I11.0 Hypertensive heart disease with heart failure; Z87.891 Personal history of nicotine dependence; Z88.5 Allergy status to narcotic agent; Z79.899 Other long term (current) drug therapy; Z79.891 Long term (current) use of opiate analgesic

== ENCOUNTER → 2021-03-04 | Outpatient (CLI) | payer OTHER ==
[~2021-03-04] VITALS: Ht 154.9 cm; Wt 61.3 kg
[2021-03-04 13:18] VITALS: BP 125/77
--- NOTE | 2021-03-04 13:31 | NUR ---
Pain Clinic Assessment: 1. History of Osteoarthritis: NECK History of Rheumatoid Arthritis: DENIES 2. Height: 5 ft. 1 in. 154.9 cm. Weight: 135.2 lb. oz. 61.326 kg. Patient's BMI: 25.6 3. Vital Signs: BP: 125/77 Pulse: 58 Resp: 16 Temp: 02 Sat: 98 ECG Mon: 4. Pain Intensity: 4 5. Fall Risk: Dizziness: N Needs help standing or walking: Y Fallen in the last 3 months: N Fall risk comments: has fallen, using walker 6. Patient on Blood Thinner: None 7. History of Hypertension: Y 8. Opioid Therapy greater than 6 weeks: Y Opiate Contract Signed: 10/12/17 9. Risk Assessment Tool Provided: LOW RISK 0/3 10. Functional Assessment Tool: 11. Recreational Drug Use: Never Drug Type: Tobacco Use: Former Smoker Tobacco Type: Amount or Packs/day: How Many Years: Alcohol Use: No Frequency: Quant:
== END ==
LOC: PAIN 10:41
PROVIDERS: ATTEND Clinical Nurse Specialist Adult Health
DX: G89.4 Chronic pain syndrome (principal); G50.0 Trigeminal neuralgia; M54.5 Low back pain; G91.9 Hydrocephalus, unspecified; M41.86 Other forms of scoliosis, lumbar region; I11.0 Hypertensive heart disease with heart failure; I50.9 Heart failure, unspecified; F32.9 Major depressive disorder, single episode, unspecified; Z79.899 Other long term (current) drug therapy; Z79.891 Long term (current) use of opiate analgesic; Z87.891 Personal history of nicotine dependence

== ENCOUNTER → 2021-05-03 | Outpatient (CLI) | payer OTHER ==
[~2021-05-03] VITALS: Ht 154.9 cm; Wt 61.4 kg
[2021-05-03 10:28] VITALS: BP 156/85
--- NOTE | 2021-05-03 10:46 | NUR ---
Pain Clinic Assessment: 1. History of Osteoarthritis: NECK History of Rheumatoid Arthritis: DENIES 2. Height: 5 ft. 1 in. 154.9 cm. Weight: 135.4 lb. oz. 61.417 kg. Patient's BMI: 25.6 3. Vital Signs: BP: 156/85 Pulse: 63 Resp: 20 Temp: 02 Sat: 99 ECG Mon: 4. Pain Intensity: 4 5. Fall Risk: Dizziness: N Needs help standing or walking: Y Fallen in the last 3 months: N Fall risk comments: has fallen, using walker 6. Patient on Blood Thinner: None 7. History of Hypertension: Y 8. Opioid Therapy greater than 6 weeks: Y Opiate Contract Signed: 10/12/17 9. Risk Assessment Tool Provided: LOW RISK 0/3 10. Functional Assessment Tool: 11. Recreational Drug Use: Never Drug Type: Tobacco Use: Former Smoker Tobacco Type: Amount or Packs/day: How Many Years: Alcohol Use: No Frequency: Quant:
== END ==
LOC: PAIN 07:33
PROVIDERS: ATTEND Clinical Nurse Specialist Adult Health
DX: G89.29 Other chronic pain (principal); G50.0 Trigeminal neuralgia; M41.80 Other forms of scoliosis, site unspecified; I50.9 Heart failure, unspecified

== ENCOUNTER → 2021-06-28 | Outpatient (CLI) | payer OTHER ==
[~2021-06-28] VITALS: Ht 154.9 cm; Wt 60.3 kg
[2021-06-28 10:02] VITALS: BP 158/98
--- NOTE | 2021-06-28 10:17 | NUR ---
Pain Clinic Assessment: 1. History of Osteoarthritis: NECK History of Rheumatoid Arthritis: DENIES 2. Height: 5 ft. 1 in. 154.9 cm. Weight: 133.0 lb. oz. 60.328 kg. Patient's BMI: 25.1 3. Vital Signs: BP: 158/98 Pulse: 60 Resp: 16 Temp: 02 Sat: 98 ECG Mon: 4. Pain Intensity: 5 5. Fall Risk: Dizziness: N Needs help standing or walking: Y Fallen in the last 3 months: N Fall risk comments: has fallen, using walker 6. Patient on Blood Thinner: None 7. History of Hypertension: Y 8. Opioid Therapy greater than 6 weeks: Y Opiate Contract Signed: 10/12/17 9. Risk Assessment Tool Provided: LOW RISK 0/3 10. Functional Assessment Tool: 11. Recreational Drug Use: Never Drug Type: Tobacco Use: Former Smoker Tobacco Type: Amount or Packs/day: How Many Years: Alcohol Use: No Frequency: Quant:
== END ==
LOC: PAIN 07:02
PROVIDERS: ATTEND Clinical Nurse Specialist Adult Health
DX: G89.29 Other chronic pain (principal); G50.0 Trigeminal neuralgia; M54.50 Low back pain, unspecified; M41.80 Other forms of scoliosis, site unspecified; Z88.8 Allergy status to other drugs, medicaments and biological substances; Z79.899 Other long term (current) drug therapy

== ENCOUNTER → 2021-08-23 | Outpatient (CLI) | payer OTHER ==
[~2021-08-23] VITALS: Ht 154.9 cm; Wt 72.6 kg
[2021-08-23 11:40] VITALS: BP 161/81
--- NOTE | 2021-08-23 11:43 | NUR ---
Pain Clinic Assessment: 1. History of Osteoarthritis: NECK History of Rheumatoid Arthritis: DENIES 2. Height: 5 ft. 1 in. 154.9 cm. Weight: 160.0 lb. oz. 72.576 kg. Patient's BMI: 30.2 3. Vital Signs: BP: 161/81 Pulse: 61 Resp: 14 Temp: 02 Sat: 98 ECG Mon: 4. Pain Intensity: 2-3 5. Fall Risk: Dizziness: N Needs help standing or walking: N Fallen in the last 3 months: N Fall risk comments: has fallen, using walker 6. Patient on Blood Thinner: None 7. History of Hypertension: Y 8. Opioid Therapy greater than 6 weeks: Y Opiate Contract Signed: 10/12/17 9. Risk Assessment Tool Provided: LOW RISK 0/3 10. Functional Assessment Tool: 11. Recreational Drug Use: Never Drug Type: Tobacco Use: Former Smoker Tobacco Type: Amount or Packs/day: How Many Years: Alcohol Use: No Frequency: Quant:
== END ==
LOC: PAIN 06:58
PROVIDERS: ATTEND Clinical Nurse Specialist Adult Health
DX: G89.29 Other chronic pain (principal); G50.0 Trigeminal neuralgia; M54.50 Low back pain, unspecified; M41.80 Other forms of scoliosis, site unspecified; Z88.8 Allergy status to other drugs, medicaments and biological substances; Z79.899 Other long term (current) drug therapy

== ENCOUNTER → 2021-10-18 | Outpatient (CLI) | payer OTHER ==
[~2021-10-18] VITALS: Ht 154.9 cm; Wt 58.5 kg
[2021-10-18 13:57] VITALS: BP 170/92
--- NOTE | 2021-10-18 13:58 | NUR ---
Pain Clinic Assessment: 1. History of Osteoarthritis: NECK History of Rheumatoid Arthritis: DENIES 2. Height: 5 ft. 1 in. 154.9 cm. Weight: 129.0 lb. oz. 58.514 kg. Patient's BMI: 24.4 3. Vital Signs: BP: 170/92 Pulse: 73 Resp: 16 Temp: 02 Sat: 98 ECG Mon: 4. Pain Intensity: 5 5. Fall Risk: Dizziness: N Needs help standing or walking: N Fallen in the last 3 months: N Fall risk comments: has fallen, using walker 6. Patient on Blood Thinner: None 7. History of Hypertension: Y 8. Opioid Therapy greater than 6 weeks: Y Opiate Contract Signed: 10/12/17 9. Risk Assessment Tool Provided: LOW RISK 0 10. Functional Assessment Tool: 11. Recreational Drug Use: Never Drug Type: Tobacco Use: Former Smoker Tobacco Type: Amount or Packs/day: How Many Years: Alcohol Use: No Frequency: Quant:
== END ==
LOC: PAIN 10:30
PROVIDERS: ATTEND Clinical Nurse Specialist Adult Health
DX: G89.29 Other chronic pain (principal); G50.0 Trigeminal neuralgia; I10 Essential (primary) hypertension; M41.9 Scoliosis, unspecified; F17.200 Nicotine dependence, unspecified, uncomplicated; Z88.8 Allergy status to other drugs, medicaments and biological substances; Z79.899 Other long term (current) drug therapy